=== PATIENT | male | born 1955 | race Caucasian/White ===

== ENCOUNTER 2017-07-25 17:28 | Emergency (ER) | payer OTHER ==
[~2017-07-25] VITALS: Ht 182.9 cm; Wt 65.0 kg
[~2017-07-25 17:28] MED LIST: AMOXICILLIN500 MG OR; DILANTIN100 MG PO; DONEPEZIL10 MG PO; ENSURE; PRINZIDE1 TAB PO; VITA D-1000 PO; VITAMIN D22000 UNIT PO; VITAMIN D31000 UNI1 OR; WELLBUTRIN SR150 M1 PO; WELLBUTRIN150 MG OR; WELLBUTRIN150 MG PO; [UNRECOGNIZED DRUG - CODE]
[2017-07-25] MEDS ORDERED: HALOPERIDOL5 MG PO (18:04)
[2017-07-25] MEDS ORDERED: MUPIROCIN2 % EX (18:05)
[2017-07-25] MEDS ORDERED: PHENYTOIN EX100 M1 PO (18:08)
[2017-07-25] MEDS ORDERED: AMOX/K CLAV875 M1 PO (18:10)
[2017-07-25 19:34] LABS: INFLUENZA A NONE DETECTED (NONE DETECT); INFLUENZA B NONE DETECTED (NONE DETECT)
[2017-07-25 20:12] LABS: HEMATOCRIT 43.6 % (39.0-50.0); HEMOGLOBIN 14.5 g/dl (14.0-18.0); IMMATURE GRANULOCYTES 0.6 % (0.0-1.0); MEAN CELL VOLUME 96.9 fL CALC (80.0-100.0); MEAN CORPUSCULAR HGB 32.2 pG CALC (26.0-32.0); MEAN CORPUSCULAR HGB CONC 33.3 g/L CALC (32.0-36.0); NEUT# 7.51 thou/uL (1.82-7.42); RED BLOOD COUNT 4.5 mill/uL (4.70-6.10)
[2017-07-25 20:20] LABS: ALBUMIN 4.8 g/dL (3.2-5.0); ALKALINE PHOSPHATASE 178 u/l (38-126); ANION GAP 21 (6-22 (CALC)); BILIRUBIN, TOTAL 0.6 mg/dL (0.0-1.4); BUN 24 mg/dL (8-23); BUN/CREATININE RATIO 23 (12-20 (CALC)); CARBON DIOXIDE 33 mmol/l (22-30); CHLORIDE 99 mmol/l (95-108); GFR > 60 ML/MIN (>=60 (CALC)); GFR FOR AFR.AMER. > 60 ML/MIN (>=60 (CALC)); POTASSIUM 4.3 mmol/l (3.5-5.1); SGPT/ALT 125 u/l (11-66); SODIUM 148 mmol/l (137-146)
[2017-07-25 20:25] LABS: INTERNATIONAL NORMALIZED RATIO 0.9 RATIO (0.7-1.3); PROTHROMBIN TIME 10.4 SECONDS (9.0-12.5)
[2017-07-25 20:26] LABS: SGOT/AST 109 u/l (19-48)
[2017-07-25 20:32] LABS: MYOGLOBIN 54 ng/mL (0 - 121)
[2017-07-26 01:02] VITALS: BP 126/76
== END 2017-07-26 01:04 | disposition short-term general hospital (02) | DRG 199 ==
LOC: ED 17:28
PROVIDERS: Emergency Medicine
PROC: 0W9930Z Drainage of Right Pleural Cavity with Drainage Device, Percutaneous Approach (ICD-10-PCS; principal; 2017-07-25)
DX: J93.83 Other pneumothorax (principal); J18.9 Pneumonia, unspecified organism; R56.9 Unspecified convulsions; R05 Cough
CPT/HCPCS: Q9967

== ENCOUNTER 2019-02-01 07:05 | Emergency (ER) | payer SELFPAY ==
[~2019-02-01] VITALS: Ht 182.9 cm; Wt 61.4 kg
[~2019-02-01 07:05] MED LIST changes: +AMOX/K CLAV875 M1 PO; +HALOPERIDOL5 MG PO; +MUPIROCIN2 % EX; +PHENYTOIN EX100 M1 PO
[2019-02-01] MEDS ORDERED: PHENYTOIN EX100 MG PO (07:22)
[2019-02-01] MEDS ORDERED: TRIAMCINOLON0.11 EX (07:23)
[2019-02-01] MEDS ORDERED: OXYIR5 MG PO (07:25)
[2019-02-01] MEDS ORDERED: AMOXICILLIN/CL875 MG PO (08:18)
[2019-02-01 08:37] VITALS: BP 124/71
== END 2019-02-01 08:51 | disposition home or self-care (01) | DRG 605 ==
LOC: ED 07:05
PROC: 0HQ1XZZ Repair Face Skin, External Approach (ICD-10-PCS; principal; 2019-02-01)
DX: S01.81XA Laceration without foreign body of other part of head, initial encounter (principal); S01.21XA Laceration without foreign body of nose, initial encounter; W06.XXXA Fall from bed, initial encounter; Y92.003 Bedroom of unspecified non-institutional (private) residence as the place of occurrence of the external cause

== ENCOUNTER 2019-02-07 08:36 | Emergency (ER) | payer OTHER ==
[~2019-02-07] VITALS: Ht 182.9 cm; Wt 75.0 kg
[~2019-02-07 08:36] MED LIST changes: +AMOXICILLIN/CL875 MG PO; +OXYIR5 MG PO; +PHENYTOIN EX100 MG PO; +TRIAMCINOLON0.11 EX
[2019-02-07 09:40] VITALS: BP 101/65
== END 2019-02-07 09:40 | disposition home or self-care (01) ==
LOC: ED 08:36
DX: S01.80XD Unspecified open wound of other part of head, subsequent encounter (principal); X58.XXXD Exposure to other specified factors, subsequent encounter

== ENCOUNTER 2019-12-06 10:18 | Inpatient (IN) | payer OTHER ==
[~2019-12-06] VITALS: Ht 182.9 cm; Wt 59.0 kg
--- NOTE | 2019-12-06 10:33 | NUR ---
to room 9 via wc in stable condition.
--- NOTE | 2019-12-06 10:45 | NUR ---
PT CHANGED TO GOWN. MONITORS APPLIED. PT ALERT TO PERSON AND PLACE. NORMAL MENTATION PER STAFF AT RESIDENTIAL. PT PRESENTS WITH FEVER AND URINARY FREQUENCY/INCONTENENCE. NO RESPIRATORY OR CARDIAC COMPLAINTS
[2019-12-06 10:59] LABS: HEMATOCRIT 43.6 % (39.0-50.0); HEMOGLOBIN 13.9 g/dl (14.0-18.0); IMMATURE GRANULOCYTES 0.5 % (0.0-5.0); MEAN CELL VOLUME 96.5 fL CALC (80.0-100.0); MEAN CORPUSCULAR HGB 30.8 pG CALC (26.0-32.0); MEAN CORPUSCULAR HGB CONC 31.9 g/dL CAL (32.0-36.0); NEUT# 5.67 thou/uL (1.82-7.42); RED BLOOD COUNT 4.52 mill/uL (4.70-6.10)
[2019-12-06 11:36] LABS: URINE BILIRUBIN - DIPSTICK NEGATIVE (NEGATIVE); URINE BLOOD DIPSTICK MODERATE (NEGATIVE); URINE COLOR YELLOW; URINE GLUCOSE - DIPSTICK NEGATIVE (NEGATIVE); URINE KETONE NEGATIVE (NEGATIVE); URINE LEUK ESTERASE NEGATIVE (NEGATIVE); URINE NITRITE - DIPSTICK NEGATIVE (Negative); URINE PROTEIN - DIPSTICK TRACE mg/dL (NEG-TRACE); URINE SPECIFIC GRAVITY 1.025; URINE UROBILINOGEN - DIPSTICK 0.2 E.U./dL (0.2)
[2019-12-06 11:46] LABS: URINE AMORPH SEDIMENT MODERATE hpf (NONE-FER); URINE RBC 25-50 RBC/hpf (0-5); URINE SQUAMOUS EPITHELIAL CELL FEW EPI/hpf (0-FEW)
[2019-12-06 11:46] LABS: ACT PARTIAL THROMBO TIME 35.7 SECONDS (20.0-32.5); PROTHROMBIN TIME 11.5 SECONDS (9.0-12.5)
[2019-12-06 11:52] LABS: INTERNATIONAL NORMALIZED RATIO 1.2 RATIO (0.7-1.3)
--- NOTE | 2019-12-06 11:52 | NUR ---
PT REPOSTIONED. PLACED ON 2L O2 VIA NC FOR O2 SAT 90. DR MOTT AWARE
--- NOTE | 2019-12-06 11:53 | NUR ---
CONTACT NUMBERS: JOSE (FAMILY) [phone] AND HALFWAY: [facility] [phone]
[2019-12-06 12:16] LABS: ALBUMIN 4.6 g/dL (3.2-5.0); ALKALINE PHOSPHATASE 143 u/l (38-126); AMYLASE 143 u/l (30-110); ANION GAP 12 (6-22 (CALC)); BILIRUBIN, TOTAL 0.3 mg/dL (0.0-1.4); BUN 23 mg/dL (8-23); BUN/CREATININE RATIO 17 (12-20 (CALC)); CARBON DIOXIDE 30 mmol/l (22-30); CHLORIDE 99 mmol/l (95-108); CREATININE 1.3 mg/dL (0.7-1.3); GFR 56 ML/MIN (>=60 (CALC)); GFR FOR AFR.AMER. > 60 ML/MIN (>=60 (CALC)); LIPASE 156 u/l (23-300); POTASSIUM 4.5 mmol/l (3.5-5.1); SODIUM 137 mmol/l (137-146); TOTAL PROTEIN 7.8 g/dL (6.3-8.2)
--- NOTE | 2019-12-06 12:17 | NUR ---
LOW BLOOD PRESSURE NOTED. DR MOTT AWARE
[2019-12-06 12:25] LABS: SGOT/AST 51 u/l (19-48)
[2019-12-06 12:37] LABS: PHENYTOIN (DILANTIN) 14 ug/mL (10 - 20)
--- NOTE | 2019-12-06 13:15 | NUR ---
ATTEMPT MADE TO CALL REPORT TO MEDICAL SURGICAL FLOOR, NO ANSWER. WILL CALL BACK. PT RESTING QUIETLY IN BED, AIRWAY PATENT, RESP EVEN AND NON LABORED, SKIN P/W/D.
--- NOTE | 2019-12-06 13:37 | NUR ---
MED SURG UNABLE TO TAKE REPORT AT THIS TIME
--- NOTE | 2019-12-06 13:51 | NUR ---
REPORT GIVEN TO [facility]
--- NOTE | 2019-12-06 14:05 | NUR ---
PT TAKEN VIA STRETCHER, TELEMETRY, O2 AND IV INFUSING TO MED SURG
--- NOTE | 2019-12-06 15:00 | NUR ---
PT ARRIVES TO ROOM 281 FROM ER ACCOMPANIED BY HUNG BANKS. PT IS DROWSY, BUT AWAKENS EASILY. PT SLOW TO RESPOND PER MENTALLY CHALLENGED. URINAL PROVIDED, PT ENCOURAGED TO STAY IN THE BED FOR HIS SAFETY. TEMP 100.5, BP 92/51.
--- NOTE | 2019-12-06 16:40 | NUR ---
PT HAS REMAINED AT REST IN THE BED WITHOUT CALLING FOR ASSIST WITH ANYTHING. NO DISTRESS NOTED.
[2019-12-06 19:30] VITALS: BP 106/58
--- NOTE | 2019-12-06 19:59 | NUR ---
Received report for this pt. in bed with eyes closed. no s/s of distress noted. tempt rechecked and continues to be febrile. heavy blankets removed. fluids encouraged. no respiratory distress noted. will continue to observe.
[2019-12-07] VITALS (39 sets, daily range): BP systolic 78–158; BP diastolic 40–86
--- NOTE | 2019-12-07 | NUR ---
PATIENT ARRIVES VIA BED ACCOMPANIED BY NURSE AND DEEP SUBMERGENCE VEHICLE CREWMEMBER. PT IS ON 4 L/MIN NC, SATS 97%. PT WEANED TO 3 L/MIN NC AND SATS 92%-94%. PT IS IN NO ACUTE RESPIRATORY DISTRESS. NO COMPLAINTS OF PAIN. USES THE URINAL, IS INCONTINENT. ORIENTED TO NAME, , AND PLACE. FOLLOWS COMMANDS. FEBRILE 10L DEGREES FAHREINHEIT, ONLY LIGHT SHEET PROVIDED. TYLENOL ALREADY GIVEN BEFORE BRINGING HIM OVER. BP 150'S SYSTOLIC. PT IS SHAKY. SR/SINUS TACH 104 BPM ON TELEMETRY. NURSING ASSESSMENT PERFORMED. RAC 20 G IV INTACT, NS NOW INFUSING AT 80 ML/HR. EXPLAINED WHY HE IS ICU NOW AND ANTIBIOTIC PRESCRIBED. CALL LIGHT WITHIN REACH.
[2019-12-07 00:04] LABS: HEMATOCRIT 43.9 % (39.0-50.0); HEMOGLOBIN 13.9 g/dl (14.0-18.0); IMMATURE GRANULOCYTES 0.5 % (0.0-5.0); MEAN CORPUSCULAR HGB CONC 31.7 g/dL CAL (32.0-36.0); NEUT# 7.71 thou/uL (1.82-7.42); RED BLOOD COUNT 4.48 mill/uL (4.70-6.10); RED CELL DISTRI WIDTH 12.4 % (11.5-15.5)
[2019-12-07 00:19] LABS: ALBUMIN 3.8 g/dL (3.2-5.0); ALKALINE PHOSPHATASE 111 u/l (38-126); ANION GAP 12 (6-22 (CALC)); BILIRUBIN, TOTAL 0.3 mg/dL (0.0-1.4); BUN 15 mg/dL (8-23); BUN/CREATININE RATIO 16 (12-20 (CALC)); CARBON DIOXIDE 25 mmol/l (22-30); CHLORIDE 102 mmol/l (95-108); GFR > 60 ML/MIN (>=60 (CALC)); GFR FOR AFR.AMER. > 60 ML/MIN (>=60 (CALC)); POTASSIUM 4.4 mmol/l (3.5-5.1); SGOT/AST 55 u/l (19-48); SODIUM 134 mmol/l (137-146); TOTAL PROTEIN 6.3 g/dL (6.3-8.2)
--- NOTE | 2019-12-07 00:28 | NUR ---
LATE ENTRY: ASSESSED PT AFTER REPORT AND PT IN BED WITH EYES CLOSED. DROWSY BUT AROUSABLE. RESPIRATIONS UNLABORED AND NO COUGH WAS NOTED. MEDICATIONS GIVEN AND TOLERATED WELL. PT ABLE TO ANSWER QUESTIONS WITH YES OR NO RSPONSE. USES URINAL WHEN NEEDED. 2330 ED CALLED AND STATES THAT PT WAS IN V-TACH MORE THAN 30 ROUNDS. STAT EKG DONE AND ABG'S DONE DUE TO O2 SATS DOWN IN THE 70'S. PT WAS PLACED ON REBREATHER AND UP TO 100%. MD WAS NOTIFIED AND NEW ORDER TO SEND TO ICU FOR FURTHER MONITORING PLACE ON BI-PAP AND D STAT LABS. RESPIRATORY IN WITH PT AND REMOVED REBREATHER AND RECHECKED O2 SAT 77%. OXYGEN PLACED BACK UP TO 4LNC AND O2 SAT 85%. PT TRANSFERRED TO ICU WITH OXYGEN THERAPY IN PLACE. STAT LABS COMPLETED. RESPIRATORY STATED PT DOES NOT NEED BI-PAP AT THIS TIME AND MADE AWARE.
--- NOTE | 2019-12-07 00:58 | NUR ---
PT'S O2 TITRATED TO 5 L/MIN NC, O2 SAT IS 91%, PT IS A MOUTH BREATHER. WILL CONTINUE TO MONITOR.
--- NOTE | 2019-12-07 01:16 | NUR ---
CALLED AND SPOKE TO DR DOWD TO NOTIFY OF PATIENT'S CRITICAL LACTIC ACID, 3.0, ALSO GAVE UPDATE ON PATIENT'S CURRENT STATUS. NEW ORDERS RECEIVED.
--- NOTE | 2019-12-07 01:36 | NUR ---
X1 IV BOLUS OF NS INFUSING NOW, TEMP RETAKE, 99.4 EGREES FAHREINHEIT. PT RESTS WITH EYES CLOSED. AWAKENS EASILY WHEN SPOKEN TO. SATS 94% ON 5 L/MIN NC.
[2019-12-07 03:05] LABS: HEMATOCRIT 42.1 % (39.0-50.0); HEMOGLOBIN 13.6 g/dl (14.0-18.0); MEAN CELL VOLUME 97.5 fL CALC (80.0-100.0); MEAN CORPUSCULAR HGB 31.5 pG CALC (26.0-32.0); MEAN CORPUSCULAR HGB CONC 32.3 g/dL CAL (32.0-36.0); RED BLOOD COUNT 4.32 mill/uL (4.70-6.10); RED CELL DISTRI WIDTH 11.9 % (11.5-15.5)
[2019-12-07 03:07] LABS: NEUT# 9.39 thou/uL (1.82-7.42)
[2019-12-07 03:25] LABS: ALBUMIN 3.8 g/dL (3.2-5.0); ALKALINE PHOSPHATASE 116 u/l (38-126); ANION GAP 11 (6-22 (CALC)); BUN 14 mg/dL (8-23); BUN/CREATININE RATIO 15 (12-20 (CALC)); CARBON DIOXIDE 25 mmol/l (22-30); CHLORIDE 104 mmol/l (95-108); CREATININE 0.9 mg/dL (0.7-1.3); GFR > 60 ML/MIN (>=60 (CALC)); GFR FOR AFR.AMER. > 60 ML/MIN (>=60 (CALC)); POTASSIUM 4.3 mmol/l (3.5-5.1); SGOT/AST 62 u/l (19-48); SODIUM 135 mmol/l (137-146); TOTAL PROTEIN 6.4 g/dL (6.3-8.2)
[2019-12-07 03:27] LABS: BILIRUBIN, TOTAL 0.5 mg/dL (0.0-1.4)
--- NOTE | 2019-12-07 04:15 | NUR ---
PARTIAL BED BATHE PROVIDED, PT HAD A MEDIUM LOOSE BM, INCONTINENT. NEW GOWN PROVIDED. TEMP RECHECKED. CALL LIGHT WITHIN REACH.
--- NOTE | 2019-12-07 04:30 | NUR ---
BOLUS OF 500 ML NS GIVEN AFTER 2ND LACTIC ACID 2.[address] ORDERS.
--- NOTE | 2019-12-07 05:00 | NUR ---
PATIENT WAS YELLING OUT FOR TOILET PAPER AND REPORTED HE HAD TO "POOP." PATIENT HAD INCONTINENT BM, I PLACED HIM ON A BED WELLS WELL BECAUSE HE REPORTED HE WAS NOT DONE, PT WOULD NOT FOLLOW DIRECTIONS AND WOULD NOT SIT ON THE BEDPAN. PT HAD AN XLARGE LOOSE BM. PARTIAL BED BATHE PROVIDED. PT NOW LAYS WITH HOB ABOUT 30 DEGREES. HAS NO OTHER COMPLAINTS. CALL LIGHT WITHIN REACH.
--- NOTE | 2019-12-07 07:50 | NUR ---
pt resting in bed with eyes closed; no apparent distress noted; easily aroused; assessment completed at this time; pt alert to person and place; denies pain; no n/v noted; resp even and unlabored; lungs diminished; skin color wnl; o2 per nc at 5L; rack worker cough noted; hr reg; strong pulses; no edema noted; sr on monitor; abd soft with bs present; no bm noted per tag writer; pt admits to voiding without complication; no urine to inspect at this time; no bm noted per tag writer; #20 to lfa saline locked; #20 to rac patent with ivf infusing without complication; no redness or edema noted at site; pt repositions self; plan of care/ am meds explained; call light within reach; will continue to monitor
--- NOTE | 2019-12-07 08:03 | NUR ---
resting in bed on right side; declined breakfast; no apparent distress noted; sr on monitor; iv intact and patent; o2 per nc; call light within reach; will continue to monitor
--- NOTE | 2019-12-07 08:45 | NUR ---
Dr Morin present at bedside to assess pt and discuss plan of care
--- NOTE | 2019-12-07 10:10 | NUR ---
resting in bed with eyes closed; sr on monitor; iv intact and patent; o2 per nc; call light within reach; will continue to monitor
--- NOTE | 2019-12-07 12:00 | NUR ---
pt resting in bed with eyes closed; bp 85/52; D CARISSA Bueno informed of trend regarding hypotension; orders received for fluid bolus; will continue to monitor closely
--- NOTE | 2019-12-07 12:25 | NUR ---
NS bolus infusing at this time; bp 90/55; sr 80 on monitor; will continue to monitor closely;
--- NOTE | 2019-12-07 12:48 | NUR ---
no rehab needs identified at this time
--- NOTE | 2019-12-07 13:30 | NUR ---
[facility] called per securities underwriter; spoke with Fabienne Boss; per Fabienne Boss, Marcela needs to be called for medical decisions/consent; Michelle Connolly with [facility] called per securities underwriter; consent obtained for central line placement;
--- NOTE | 2019-12-07 14:07 | NUR ---
awake sitting on side of bed eating lunch; no apparent distress noted; pt offers no complaints; iv intact and patent; sr on monitor; call light within reach; will continue to monitor
--- NOTE | 2019-12-07 14:17 | NUR ---
iv flushed and patent; no redness or edema noted at site; levophed gtt initiated at 4mcg/min
--- NOTE | 2019-12-07 16:01 | NUR ---
resting in bed with eyes closed; no apparent distress noted; easily aroused; iv intact and patent; levophed gtt infusing at 8mcg/min; no redness or edema noted at site; sr on monitor; call light within reach; will continue to monitor
--- NOTE | 2019-12-07 17:59 | NUR ---
resting in bed with eyes closed; no apparent distress noted; pt offers no complaints; iv intact and patent; levophed gtt infusing at 8mcg/min; no redness or edema noted at site; sr on monitor; o2 per nc; call light within reach
--- NOTE | 2019-12-07 19:30 | NUR ---
PATIENT RESTING IN BED ON ROUNDS. AWAKE, ALERT AND ORIENTED TO PERSON AND PLACE. CALM AND COOPERATIVE. FOLLOWS DIRECTIONS. DENIES ANY PAIN OR DISCOMFORTS. RESP NON-LABORED. O2 AT 5 L NC. O2 SAT 98% LUNGS CLEAR, SLT DIMINISHED T/O. SALINE LOCK INTACT IN RAC. IV IN LFA WITH NS INFUSING AT 100 ML/HR AND LEVOPHED AT 8 MCG/MIN, SITE BENIGN. VOIDS IN URINAL CLEAR YELLOW URINE. STAFF RN SHOWS SR. EXPLAINED PLAN OF CARE. PATIENT ASKIG WHEN HE IS GOING TO GO HOME. SUPPORT AND REASSURANCE PROVIDED TO PATIENT REGARDING HOSPITAL STAY. NO NEEDS IDENTIFIED AT THIS TIME. REINFORCED USE OF CALL ENGLISH. PATIENT VERALIZES UNDERSTANDING.
--- NOTE | 2019-12-07 20:30 | NUR ---
RIJTLC PLACED BY DR ESCOBAR. PORTABLE CXR DONE TO CONFIRM PLACED. DR ESCOBAR GAVE VERBAL OK TO USE LINE. NS AND LEVOPHED NOW INFUSING PER TLC. LFA SITE SALINE LOCKED.
--- NOTE | 2019-12-07 22:00 | NUR ---
ASSISTED UP TO BSC, VOIDED NO BM. VSS. SR ON MONITOR.
[2019-12-08] VITALS (33 sets, daily range): BP systolic 94–140; BP diastolic 55–84
--- NOTE | 2019-12-08 | NUR ---
NO CHANGES TO REPORT. RESTING WITHOUT COMPLAINTS. VSS. SR ON MONITOR.
--- NOTE | 2019-12-08 01:00 | NUR ---
UP TO BSC WITH ASSIST, VOIDED, NO BM. BP 140/73. LEVOPHED GTT DECREASED TO 7 MCG/MIN.
--- NOTE | 2019-12-08 02:00 | NUR ---
RESTING WITH EYES CLOSED. RESP NON-LABORED. VSS. SR ON MONITOR.
--- NOTE | 2019-12-08 04:15 | NUR ---
ASSISTED UP TO BSC, VOIDS WITHOUT DIFFICULTY. BLOOD DRAWN FOR AM LABS FROM [facility].
[2019-12-08 05:24] LABS: HEMOGLOBIN 13.7 g/dl (14.0-18.0); MEAN CORPUSCULAR HGB 30.6 pG CALC (26.0-32.0); MEAN CORPUSCULAR HGB CONC 32.6 g/dL CAL (32.0-36.0); RED BLOOD COUNT 4.47 mill/uL (4.70-6.10); RED CELL DISTRI WIDTH 12.1 % (11.5-15.5)
[2019-12-08 05:52] LABS: ANION GAP 10 (6-22 (CALC)); BUN 10 mg/dL (8-23); BUN/CREATININE RATIO 12 (12-20 (CALC)); CARBON DIOXIDE 26 mmol/l (22-30); CHLORIDE 104 mmol/l (95-108); CREATININE 0.9 mg/dL (0.7-1.3); GFR > 60 ML/MIN (>=60 (CALC)); GFR FOR AFR.AMER. > 60 ML/MIN (>=60 (CALC)); SODIUM 135 mmol/l (137-146)
--- NOTE | 2019-12-08 05:57 | NUR ---
VSS. RESP NON-LABORED. SR ON MONITOR. LEVOPHED GTT CONTINUES AT 7 MCG/MIN AND NS AT 100 ML/HR TO RITLC. SALINE LOCKS INTACT IN RAC AND LFA.
--- NOTE | 2019-12-08 06:45 | NUR ---
RECIEVED REPORT FROM DARREN NORRIS. ASSUMED PT CARE.
--- NOTE | 2019-12-08 07:30 | NUR ---
PT ALERT TO SELF, ABLE TO MAKE NEEDS KNOWN. ASSESSMENT COMPLETED. RESPIRATIONS EVEN/UNLABORED. 02@2LPM/NC. NO DISTRESS NOTED AT THIS TIME. CALL LIGHT IN REACH.
--- NOTE | 2019-12-08 09:30 | NUR ---
PT VOIDED IN BSD URINAL
--- NOTE | 2019-12-08 11:30 | NUR ---
PT REFUSED LUNCH TRAY, OFFERED TWICE.
--- NOTE | 2019-12-08 12:41 | NUR ---
PT RESTING IN BED WITH EYES CLOSED. CALL LIGHT IN REACH. NO DISTRESS NOTED AT THIS TIME.
--- NOTE | 2019-12-08 14:47 | NUR ---
COMPLETE BED BATH. LINEN CHANGE AND MOUTH CARE PROVIDED. PT TOLERATED WELL.
--- NOTE | 2019-12-08 17:00 | NUR ---
PT RESTING IN BED, RESPIRATIONS EVN/UNLABORED. LEVOPHED GTT CONTINUES. CALL LIGHT IN REACH. WILL MONITOR.
--- NOTE | 2019-12-08 17:56 | NUR ---
PT REFUSED DINNER, EDUCATION ON NUTRITION GIVEN, PT ENCOURAGED TO TAKE ENSURE. PT DECLINED. WILL MONITOR.
--- NOTE | 2019-12-08 20:15 | NUR ---
RESTING IN BED WITH EYES CLOSED. AWAKENS TO NAME. DENIES ANY PAIN OR DISCOMFORTS. VSS. RESP NON-LABORED AT REST. O2 ON AT 2 L NC. BREATH SOUNDS DIMINISHED THROUGHOUT LUNG COMBS. RIJTLC IN PLACE WITH NS INFUSING AT 100 ML/HR AND LEVOPHED GTT AT 2 MCG/MIN. SALINE LOCK IN PLACE IN RAC AND LFA, BOTH SITES BENIGN. SOFTWARE QA SYSTEM SPECIALIST SHOWS SR. EXPLAINED PLAN OF CARE. DENIES NEEDS AT THIS TIME. CALL ENGLISH IN REACH. VOIDS SLT CLOUDY YELLOW URINE IN URINAL.
--- NOTE | 2019-12-08 21:00 | NUR ---
TOOK HS MEDS WITHOUT DIFFICULTY. OFFERED HS SNACK PATIENT REFUSES.
--- NOTE | 2019-12-08 22:00 | NUR ---
VSS. SR ON MONITOR. LEVOPHED GTT CONTINUES AT 2 MCG/MIN.
[2019-12-09] VITALS (26 sets, daily range): BP systolic 105–164; BP diastolic 63–90
--- NOTE | 2019-12-09 00:05 | NUR ---
ASLEEP ON ROUNDS. RESP NON-LABORED. VSS. O2 SAT 98% CONTINUES USING O2 AT 2 L NC. MONITOR SHOWS SR.
--- NOTE | 2019-12-09 01:51 | NUR ---
NO CHANGES TO REPORT. RESTING CALMLY AND QUIETLY. VSS. SR ON MONITOR.
--- NOTE | 2019-12-09 04:05 | NUR ---
CONTINUES ON LEVOPHED GTT AT 2 MCG/MIN. BP STABLE. RESP EVEN AND UNLABORED. SR ON MONITOR.
--- NOTE | 2019-12-09 06:00 | NUR ---
LEVOPHED GTT CONTINUES AT 2 MCG/MIN, NS AT 50 ML/HR. SR ON MONITOR. PATIENT HAS SLEPT WELL DURING THE NIGHT.
--- NOTE | 2019-12-09 07:10 | NUR ---
pt resting in bed with eyes closed; no apparent distress noted; easily aroused; pt offers no complaints; assessment completed at this time; pt alert to person and hospital; denies pain; no n/v noted; resp even and unlabored; lungs coarse/diminished; skin color wnl; o2 per nc; inpatient nursing aide cough noted; hr reg; strong pulses; no edema noted; sr on monitor; abd soft with bs present; no bm noted per personal lines underwriter; pt voiding yellow urine without complication; urinal at bedside; #20 intact to lfa and rac; TLC flushed and patent to RIJ: ivf infusing as per orders/ levophed gtt at 2mcg/min; no redness or edema noted at site; plan of care/ am meds explained; call light within reach; will continue to monitor
--- NOTE | 2019-12-09 07:59 | NUR ---
Dr Morin present at bedside to assess pt and discuss plan of care
--- NOTE | 2019-12-09 10:11 | NUR ---
awake in bed; no apparent distress noted; iv intact and patent; levophed gtt at 2mcg/min; o2 per nc; urinal at bedside; sr on monitor; will continue to monitor
--- NOTE | 2019-12-09 10:49 | NUR ---
ticket writer called [facility]; informed of covid results; will continue to monitor
--- NOTE | 2019-12-09 11:26 | NUR ---
pt declining lunch; staff inquires why he is not eating; pt states nothing taste right; pt covid +; loss of taste noted
--- NOTE | 2019-12-09 11:45 | NUR ---
pt awake in bed; no apaprent distress noted; pt asked this financial underwriter "is it possible to stay one more day" pt states he is in the hospital; plan of care explained; pt reassured; cont to decline lunch; levophed gtt placed on hold/attempt to wean; will continue to monitor
--- NOTE | 2019-12-09 12:15 | NUR ---
resting in bed with eyes closed; no apparent distress noted; iv intact and patent; levophed remains on hold at current; o2 per nc; pt self repositions; call light within reach; will continue to monitor
--- NOTE | 2019-12-09 13:54 | NUR ---
asleep; easily aroused; offers no complaints; levophed gtt weaned; iv intact and patent; urinary incont noted; will continue to monitor
--- NOTE | 2019-12-09 16:20 | NUR ---
resting in bed with eyes closed; no apparent distress noted; o2 per nc; iv intact and patent; levophed weaned; will continue to monitor
--- NOTE | 2019-12-09 18:32 | NUR ---
awake in bed; no apparent distress noted; iv intact; no redness or edema noted at site; sr on monitor; o2 per nc; pt refused dinner/ po fluids; call light within reach
--- NOTE | 2019-12-09 20:47 | NUR ---
PATIENT IS AWAKE, ORIENTED TO PERSON, PLACE, AND AGE. PT ABLE TO FOLOW COMMANDS. PATIENT DENIES PAIN OR NO OTHER COMPLAINTS. PT ON 2 L/MIN NC, NO RESPIRATORY DISTRESS NOTED, O2 SATS GREATER THAN 95%. AFEBRILE, BP WNL. RIJ 3 LUMEN, INTACT, FLUSHES AND RETURNS BLOOD PROPERLY. NS INFUSING PROPERLY. PT ABLE TO SWALLOW HIS BEDTIME MEDS WITHOUT DIFFICULTY. SR ON TELEMETRY. USES URINAL AND DOES HAVE INCONTINENCE. NURSING ASSESSMENT PERFORMED. SELF REPOSITIONS. CALL LIGHT WITHIN REACH.
--- NOTE | 2019-12-09 22:15 | NUR ---
O2 TITRATED TO 3 L/MIN NC, PT'S O2 DROPS TO 92%. RESTS WITH EYES CLOSED, NO RESPIRATORY DISTRESS NOTED.
[2019-12-10] VITALS (17 sets, daily range): BP systolic 99–142; BP diastolic 62–113
--- NOTE | 2019-12-10 00:17 | NUR ---
ANTIBIOTIC INFUSING NOW. PT RESTS WITH EYES CLOSED. AWAKENS EASILY WHEN SPOKEN TO. NO ACUTE DISTRESS SHOWN. CALL LIGHT WITHIN REACH.
--- NOTE | 2019-12-10 04:17 | NUR ---
PT UP TO THE BEDSIDE COMMODE WITH MINIMAL ASSIST. BED PADS CHANGED, NEW GOWN PROVIDED. BUTTOCK WASHED AND DRIED. PT NOW LAYS IN BED WITH NO ACUTE DISTRESS. CALL LIGHT WITHIN REACH.
--- NOTE | 2019-12-10 05:39 | NUR ---
LABS DRAWN FROM RIJ, FLUSHES AND RETURNS BLOOD PROPERLY, INTACT. PT RESTS WITH EYES CLOSED. CALL LIGHT WITHIN REACH.
[2019-12-10 05:51] LABS: HEMATOCRIT 37.8 % (39.0-50.0); HEMOGLOBIN 12.1 g/dl (14.0-18.0); IMMATURE GRANULOCYTES 0.5 % (0.0-5.0); MEAN CELL VOLUME 95.5 fL CALC (80.0-100.0); MEAN CORPUSCULAR HGB 30.6 pG CALC (26.0-32.0); NEUT# 2.99 thou/uL (1.82-7.42); RED BLOOD COUNT 3.96 mill/uL (4.70-6.10); RED CELL DISTRI WIDTH 12.1 % (11.5-15.5)
[2019-12-10 06:12] LABS: ALKALINE PHOSPHATASE 92 u/l (38-126); ANION GAP 7 (6-22 (CALC)); BILIRUBIN, TOTAL 0.6 mg/dL (0.0-1.4); BUN 13 mg/dL (8-23); BUN/CREATININE RATIO 15 (12-20 (CALC)); CARBON DIOXIDE 28 mmol/l (22-30); CHLORIDE 106 mmol/l (95-108); CREATININE 0.9 mg/dL (0.7-1.3); GFR > 60 ML/MIN (>=60 (CALC)); GFR FOR AFR.AMER. > 60 ML/MIN (>=60 (CALC)); POTASSIUM 3.5 mmol/l (3.5-5.1); SODIUM 137 mmol/l (137-146); TOTAL PROTEIN 5.2 g/dL (6.3-8.2)
[2019-12-10 06:33] LABS: ALBUMIN 2.8 g/dL (3.2-5.0); C-REACTIVE PROTEIN 19.9 mg/dL (0-0.9); SGOT/AST 117 u/l (19-48)
--- NOTE | 2019-12-10 07:25 | NUR ---
pt resting in bed with eyes closed; no apparent distress noted; easily aroused; pt offers no complaints; alert to person and place; denies pain; no n/v noted; resp even and unlabored; lungs clear/ diminished bases; skin color wnl; o2 per nc; firestopper technician cough noted; hr reg; strong pulses; no edema noted; sr on monitor; abd soft with bs present; no bm noted per residential mortgage underwriter; pt voiding without complication; urinal at bedside; TLC patent to RIJ; no redness or edema noted at site; ivf infusing without complication; plan of care/ am meds explained; call light within reach; will continue to monitor
--- NOTE | 2019-12-10 08:12 | NUR ---
pt awake in bed; no apparent distress noted; iv intact and patent; sr on monitor; pt refusing meal; call light within reach; will continue to monitor
--- NOTE | 2019-12-10 08:37 | NUR ---
Dr Morin present at bedside to assess pt and discuss plan of care
--- NOTE | 2019-12-10 10:08 | NUR ---
resting in bed with eyes closed; no apparent distress noted; o2 per nc; iv intact; fluids infusing without complication; no redness or edema noted at site; call light within reach; will continue to monitor
--- NOTE | 2019-12-10 10:25 | NUR ---
Eryn from [facility] called; passcode verified; information/update provided; per family, pt will eat pureed or mech soft diet (due to teeth); pt takes Ensure TID due to weight loss; pt likes mashed potatoes and peanut butter and jelly; will continue to monitor
--- NOTE | 2019-12-10 12:05 | NUR ---
awake in bed; no apparent distress noted; pt offers no complaints; iv intact and patent; no redness or edema noted at site; sr on monitor; o2 per nc; lunch provided; pt provided with soup, mashed potatoes and peanut butter and jelly sandwich; pt admits to wanting p&j sandwich but declined with staff attempting to feed; ensure at bedside; will continue to monitor
--- NOTE | 2019-12-10 14:00 | NUR ---
resting in bed with eyes closed; sr on monitor; iv intact and patent; call light within reach; will continue to monitor
--- NOTE | 2019-12-10 16:10 | NUR ---
pt resting in bed with eyes closed; no apparent distress noted; iv intact and patent; no urinary incont noted at this time; sr on monitor; call light within reach; will continue to monitor
--- NOTE | 2019-12-10 17:26 | NUR ---
up to bsc; dk brown liquid stool noted; pericare per staff; o2 per nc; exertional sob noted; iv intact and patent; will continue to monitor
--- NOTE | 2019-12-10 18:09 | NUR ---
resting in bed with eyes closed; no apparent distress noted; resp even and unlabored; iv intact and patent; sr on monitor; call light within reach
--- NOTE | 2019-12-10 18:29 | NUR ---
AWAKE IN BED; CONTINUES TO DECLINE DINNER; ENSURE PROVIDED
--- NOTE | 2019-12-10 19:15 | NUR ---
PATIENT ON BSC, DOES HAVE UNSTEADY GAIT. DIGNA AREA WAS WASHED UP AND DRIED. PT DOES BECOME SOB WITH EXERTION. PT BECOMES COLD AND STARTS TO SHAKE, HEART MONITOR UNABL TO READ CORRECTLY WHEN PT SHAKES. PT HAD LIQUID BM. PT ORIENTED TO NAME, , PLACE, AGE. PT FOLOWS DIRECTIONS. PT DID DRINK ENSURE PROVIDE DURING DAYSHIFT. RIJ TRIPLE LUMEN INTACT, FLUSHES PROPERLY, D5NS AT 50 ML/HR INFUSING. AFEBRILE, BP WNL. O2 AT 3 L/MIN, O2 READS 80'S WHEN FINGERS ARE COLD. URINL AT BEDSIDE. PT WLF REPSOITONS. SITE ACQUISITION MANAGER MOIST COUGH. NURSING ASSESSMENT PERFORMED. CALL LIGHT WITHIN REACH.
--- NOTE | 2019-12-10 21:24 | NUR ---
PT ASSISTED TO BSC, DOES HAVE UNSTEADY GAIT. WAS CLEANED UP. NOW LAYS BACK IN BED, WITH SOB WITH EXERTION. CALL LIGHT WITHIN REACH.
--- NOTE | 2019-12-10 22:10 | NUR ---
PATIENTABLE TO SWALLOW HIS BEDTIME MEDS WITHOUT DIFFICULTY. WARM BLANKET PROVIDED PER REQUEST. NO OTHER NEEDS AT THIS TIME. CALL LIGHT WITHIN REACH.
--- NOTE | 2019-12-10 23:28 | NUR ---
PT RESTS WITH EYES CLOSED. NO ACUTE DISTRESS SHOWN. VS WNL.
[2019-12-11] VITALS (12 sets, daily range): BP systolic 91–111; BP diastolic 57–83
--- NOTE | 2019-12-11 00:23 | NUR ---
MIDNIGHT ANTIBIOTIC INFUSING NOW, X1 ORDER OF IV DECADRON GIEVN WELL. PT AWAKENS EASILY WITH VERBAL STIMULI. NO ACUTE DISTRESS SHOWN. NO COMPLAINTS OR NEEDS AT THIS TIME.
--- NOTE | 2019-12-11 00:58 | NUR ---
PT ASSISTED TO BSC. HAD LIQUID BM. PT SAFELY TRANSFERRED BACK TO BED, NOW LAYS ON HIS RIGHT SIDE. CALL LIGHT WITHIN REACH.
--- NOTE | 2019-12-11 02:24 | NUR ---
PATIENT RESTS WITH EYES CLOSED. NO ACUTE DISTRESS SHOWN. CALL LIGHT WITHIN REACH.
--- NOTE | 2019-12-11 04:57 | NUR ---
PT MANAGER FINANCE LIGHT, ASSISTED TO BSC, BUTTOCKS WASHED UP. PT ABLE TO SELF REPSOITON WITH VERBAL CUEING. AFEBRILE. NO OTHER NEEDS AT THIS TIME. CALL LIGHT WITHIN REACH.
--- NOTE | 2019-12-11 08:00 | NUR ---
PT SEEN AWAKE, ORIENTED X 2. LUNGS SLIGHTLY COARSE THROUGHOUT, 3 LPM. NO SHORTNESS OF BREATH NOTED. PT MENTALLY CHALLENGED BUT APPROPRIATE WHEN HE RESPONDS.
--- NOTE | 2019-12-11 12:03 | NUR ---
PT STOOD UP AT BEDSIDE TO VOID, ALSO HAD BM IN BED. PT CLEANED UP, ASSISTED BACK INTO BED. MARY FROM [facility] HAS CALLED FOR AN UPDATE. PT DID EAT MINIMAL BREAKFAST, ENCOURAGED NOW TO EAT A GOOD LUNCH.
--- NOTE | 2019-12-11 16:17 | NUR ---
PT HAS REMAINED AT REST IN THE BED WITHOUT SIGNIFICANT CHANGE IN STATUS.
--- NOTE | 2019-12-11 18:14 | NUR ---
PT IN BED WITH EYES CLOSED, NO DISTRESS, NO ISSUES. PT WITH SUPPER STILL ON BEDSIDE TABLE FOR WHEN HE IS READY.
--- NOTE | 2019-12-11 19:45 | NUR ---
PATIENT RANG CALL LIGHT FOR ASSISTANCE TO USE BSC. UP TO BSC WITH MINIMAL ASSIST-VOIDED AND HAD SMALL LIQUID STOOL. PATIENT IS CALM AND COOPERATIVE. ALERT AND ORIENTED. RESP NON-LABORED. O2 ON AT 2 L NC. O2 SAT 98% BREATH SOUNDS COARSE IN UPPER LOBES AND DIMINISHED IN BILATERAL BASES. MOIST, NON-PRODUCTIVE COUGH PRESENT. RIJTLC INTACT WITH D5NS INFUSING AT 50 ML/HR. BEACH ATTENDANT SHOWS SR. DISCUSSED PLAN OF CARE. NO NEEDS IDENTIFIED AT THIS TIME.
--- NOTE | 2019-12-11 22:00 | NUR ---
RESTING IN BED. VSS. SR ON MONITOR.
[2019-12-12] VITALS (12 sets, daily range): BP systolic 111–138; BP diastolic 70–84
--- NOTE | 2019-12-12 | NUR ---
UP TO BSC AGAIN HAD SMALL LIQUID STOOL AND VOIDED.
--- NOTE | 2019-12-12 02:00 | NUR ---
RESTING IN BED WITH EEYS CLOSED. RESP NON-LABORED. VSS.
--- NOTE | 2019-12-12 03:00 | NUR ---
PATIENT GOT HIMSELF UP TO SIDE OF BED AND HAD LARGE LOOSE STOOL AND VOIDED ALL OVER THE FLOOR. ASSISTED PATIENT TO BSC. PARTIAL LINEN CHANGE AND PARTIAL BATH GIVEN. ASSISTED BACK TO BED.
--- NOTE | 2019-12-12 04:10 | NUR ---
RESTING QUIETLY IN BED AT THIS TIME. VSS. REMAINS IN SR ON MOITOR. IV INFUSING WITHOUT INCIDENT PER RIJTLC.
--- NOTE | 2019-12-12 04:45 | NUR ---
BLOOD DRAWN FROM [facility] FOR AM LABS ORDERED.
[2019-12-12 05:18] LABS: HEMATOCRIT 36.6 % (39.0-50.0); HEMOGLOBIN 11.4 g/dl (14.0-18.0); IMMATURE GRANULOCYTES 0.5 % (0.0-5.0); MEAN CELL VOLUME 97.3 fL CALC (80.0-100.0); MEAN CORPUSCULAR HGB 30.3 pG CALC (26.0-32.0); MEAN CORPUSCULAR HGB CONC 31.1 g/dL CAL (32.0-36.0); NEUT# 2.98 thou/uL (1.82-7.42); RED BLOOD COUNT 3.76 mill/uL (4.70-6.10); RED CELL DISTRI WIDTH 12.2 % (11.5-15.5)
[2019-12-12 05:39] LABS: ALBUMIN 2.8 g/dL (3.2-5.0); ALKALINE PHOSPHATASE 89 u/l (38-126); ANION GAP 3 (6-22 (CALC)); BILIRUBIN, TOTAL 0.4 mg/dL (0.0-1.4); BUN 15 mg/dL (8-23); BUN/CREATININE RATIO 17 (12-20 (CALC)); C-REACTIVE PROTEIN 7.4 mg/dL (0-0.9); CHLORIDE 107 mmol/l (95-108); CREATININE 0.9 mg/dL (0.7-1.3); GFR > 60 ML/MIN (>=60 (CALC)); GFR FOR AFR.AMER. > 60 ML/MIN (>=60 (CALC)); POTASSIUM 3.1 mmol/l (3.5-5.1); SGOT/AST 63 u/l (19-48); SODIUM 141 mmol/l (137-146); TOTAL PROTEIN 5.3 g/dL (6.3-8.2)
[2019-12-12 05:45] LABS: CARBON DIOXIDE 34 mmol/l (22-30)
--- NOTE | 2019-12-12 06:10 | NUR ---
SLEPT INTERMITTENTLY. RESP NON-LABORED. MAINTAINING O2 SAT >93% DURING THE NIGHT. SR ON MONITOR. RIJTLC INTACT, DSG CDI, D5NS CONTINUES TO INFUSE AT 50 ML/HR, UNUSED PORTS HAVE A GOOD BLOOD RETURN, FLUSHED AND PATENT.
--- NOTE | 2019-12-12 07:05 | NUR ---
pt resting in bed with eyes closed; no apparent distress noted; easily aroused; assessment completed at this time; when asked name and date of pt shakes head no; nods no for pain; no n/v noted per underwriter solicitation director; resp even and unlabored; exertional sob noted; lungs clear/ diminished bases; skin color wnl; pt noted with o2 off; o2 sat 95% on ra; moist psych arnp cough noted; hr reg; strong pulses; no edema noted; sr on monitor; abd soft with bs present; no bm noted/ no urine noted at this time; urinal at bedside; TLC patent to RIJ with ivf infusing without complication; no redness or edema noted at site; redness noted to coccyx; pt repositoned to left side at this time; repositioning explained; pt yells for a blanket; provided; will continue to monitor
--- NOTE | 2019-12-12 08:10 | NUR ---
contract technical writer present at bedside; pt has self repositioned to supine; sr on monitor; pt refusing breakfast; contract technical writer able to encourage pt to drink ensure; am meds administered; iv intact and patent; urinal at bedside; will continue to monitor
--- NOTE | 2019-12-12 08:53 | NUR ---
Dr Morin present at bedside to assess pt and discuss plan of care
--- NOTE | 2019-12-12 10:01 | NUR ---
resting in bed with eyes closed; no apparent distress noted; resp even and unlabored; iv intact and patent; sr on monitor; face appears flushed; afebrile; o2 per nc; bed alarm set for pt safety; call light within reach; will continue to monitor
--- NOTE | 2019-12-12 11:57 | NUR ---
awake information systems security developer light; assist to bsc; liquid dk brown stool; pericare per staff; iv intact and patent; o2 per nc; st on monitor; refusing lunch/ peanut butter sandwich; pt will drink ensure for staff; bed alarm set for pt safety; call light within reach; will continue to monitor
--- NOTE | 2019-12-12 13:50 | NUR ---
awake in bed; sales consultant light; assist to bsc for liq kei hilliard bm; john per this commercial loan underwriter; sr/st on monitor; o2 per nc; iv intact and patent; pt offers no complaints; additional ensure provided; call light within reach; will continue to monitor
--- NOTE | 2019-12-12 15:16 | NUR ---
up to bsc for liq stool
--- NOTE | 2019-12-12 16:05 | NUR ---
awake interpersonal communications professor light; assisted to bsc for liq stool; pericare per blog writer; o2 per nc; iv intact and patent; sob on exertion noted; sr on monitor; call light within reach; will continue to monitor
--- NOTE | 2019-12-12 18:11 | NUR ---
awake in bed; decling dinner; tolerating Ensure well; up to bsc for stool; exertional sob noted; desats to mid 80s with exertion; o2 titrated to 3L NC; st with exertion; back to bed; call light within reach
--- NOTE | 2019-12-12 19:45 | NUR ---
PATIENT RESTING IN BED. ASSISTED UP TO BSC. PATIENT NOTED TO HAVE INCREASING GENERALIZED WEAKNESS. VOIDED AND HAD MODERATE LIQUID DK BROWN STOOL. ASSSITED BACK TO BED. RESP ARE LABORED WITH EXERTION, DESAT TO 88% QUICKLY BACK UP INTO THE 90'S ONCE BACK TO BED. O2 ON AT 3 L NC. BREATH SOUNDS DIMINISHED THROUGOUT LUNG COMBS. MOIST NON-PRODUCTIVE COUGH PRESENT. REMINDED TO TURN SIDE TO SIDE AND STAY OFF BACK MUCH POSSIBLE D/T REDNESS OF COCCYX. RIJTLC INTACT, DSG CDI, D5NS INFUSING AT 50 ML/HR WITH TWO PORTS SALINE LOCKED. TRAFFIC EXPERT SHOWS SR. EXPLAINED PLAN OF CARE AND MEDICATION SCHEDULE. PATIENT GIVEN CHOCOLATE ENSURE PER HIS REQUEST. CALL ENGLISH IN REACH.
--- NOTE | 2019-12-12 22:00 | NUR ---
PATIENT HAS BEEN UP TO BSC X3 THIS SHIFT FOR SMALL TO MODERATE LIQUID STOOLS AND VOID. PATIENT DRANK BOTTLE OF ENSURE. VSS.
[2019-12-13] VITALS (13 sets, daily range): BP systolic 103–152; BP diastolic 61–96
--- NOTE | 2019-12-13 00:05 | NUR ---
RESTING QUIETLY AT THIS TIME. VSS. SR ON MONITOR.
--- NOTE | 2019-12-13 02:00 | NUR ---
RESTING IN BED WITH EYES CLOSED. IN NO APPARENT DISTRESS,
--- NOTE | 2019-12-13 04:00 | NUR ---
SLEEPS FOR SHORT INTERVALS. VSS. RESP NON-LABORED. SR ON MONITOR.
--- NOTE | 2019-12-13 06:00 | NUR ---
HAD NUMERSOUS LIQUID STOOLS DURING THE NIGHT. VOIDED WITH EACH BM. SR ON MONITOR.
--- NOTE | 2019-12-13 07:00 | NUR ---
pt awake in bed air traffic control operator light; requesting additional blankets; no apparent distress noted; assessment completed at this time; pt alert to person and place; denies pain; no n/v noted; resp even and unlabored; exertional sob noted; lungs coarse; skin color wnl; face appears flushed; o2 per nc at 3L; STOCK BROKER moist cough noted; hr reg; strong pulses; no edema noted; sr on monitor; abd soft with bs present; pt with multiple liq stools throughout the night; pt voiding without complication/ voiding with stools; bsc; TLC patent to RIJ with ivf infusing without complication; no redness or edema noted at site; redness noted to coccyx/ buttocks; repositioned to left side however, pt repositioned self to supine prior to typewriter assembler leaving room; plan of care/ meds explained; call light within reach; will continue to monitor
--- NOTE | 2019-12-13 08:00 | NUR ---
awake in bed; declined breakfast; tolerated Ensure well; iv intact and patent; sr on monitor; o2 per nc; offers no complaints; call light within reach; will continue to monitor
--- NOTE | 2019-12-13 08:35 | NUR ---
bed alarm sounding; pt out of bed per self to bsc; loose stool noted; sample obtained; pericare per staff; will continue to monitor
--- NOTE | 2019-12-13 09:05 | NUR ---
bed alarm sounding; pt out of bed per self; safety precautions explained; Dr Morin at bedside to assess pt and discuss plan of care; st on monitor; o2 per nc; iv intact and patent; gown changed; will continue to monitor
--- NOTE | 2019-12-13 10:00 | NUR ---
awake; bed alarming; up up per self to bsc; again, fall precautions and safety precautions explained; pericare per fiction and nonfiction writer prose; no stool noted; sr on monitor; iv intact and patent; o2 per nc; call light within reach; will continue to monitor
--- NOTE | 2019-12-13 12:00 | NUR ---
awake sitting on side of bed eating lunch; no distress noted; assist to bsc; pt offers no complaints; iv intact and patent; sr on monitor; o2 per nc; call light within reach; will continue to monitor
--- NOTE | 2019-12-13 14:15 | NUR ---
resting in bed with eyes closed; no apparent distress noted; sr on monitor; o2 per nc; will continue to monitor
--- NOTE | 2019-12-13 15:00 | NUR ---
up to bsc; pt refusing bath; complete linen change; partial bath per magnetic tape typewriter operator; will continue to monitor
--- NOTE | 2019-12-13 16:05 | NUR ---
pt resting in bed with eyes closed; no apparent distress noted; resp even and unlabored; iv intact and patent; sr on monitor; o2 per nc; call light within reach; will continue to monitor
--- NOTE | 2019-12-13 18:15 | NUR ---
pt resting in bed with eyes closed; no apparent distress noted; resp even and unlabored; sr on monitor; iv intact and patent; no redness or edema noted at site; call light within reach
--- NOTE | 2019-12-13 19:35 | NUR ---
UP TO BSC VOIDED WITH MODERATE LIQUID DARK BROWN STOOL. ASSISTED BACK TO BED. RESP SLT LABORED WITH EXERTION. O2 ON AT 3 L NC. BREATH SOUNDS COARSE THROUGOUT. MOIST, NON-PRODUCTIVE COUGH PRESENT. RIJTLC INTACT, DSG CDI, D5NS INFUSING AT 50 ML/HR. PATIENT NOTED TO HAVE REDNESS OF COCCYX, INSTRUCTED ON NEED FOR POSITION CHANGES. SCIENCE AND OPERATIONS OFFICER SHOWS SR. EXPLAINED PLAN OF CARE. REQUESTS AN ENSURE BEFORE BED TONIGHT. CALL ENGLISH IN REACH.
--- NOTE | 2019-12-13 22:05 | NUR ---
PATIENT UP TO BSC HOURLY SINCE 1900 VOIDS AND HAVING SMALL TO MODERATE LIQUID STOOLS. VSS. SR ON MONITOR.
[2019-12-14] VITALS (9 sets, daily range): BP systolic 121–155; BP diastolic 73–91
--- NOTE | 2019-12-14 | NUR ---
RESTING IN BED WITH EYES CLOSED. RESP NON-LABORED AT RET. VSS. SR ON MONITOR.
--- NOTE | 2019-12-14 02:00 | NUR ---
ASLEEP. NO CHANGES TO REPORT. IN NO APPARENT DISTRESS. VSS. SR ON MONITOR. RESP NON-LABORED.
--- NOTE | 2019-12-14 04:00 | NUR ---
PATIENT AWAKE, UP TO BSC TO VOID. BLOOD FROM TLC FOR AM LABS ORDERED. TLC FLUSHED PRE AND POST LAB DRAW PER PROTOCOL. VSS. SR.
[2019-12-14 05:15] LABS: HEMATOCRIT 41.3 % (39.0-50.0); HEMOGLOBIN 12.8 g/dl (14.0-18.0); IMMATURE GRANULOCYTES 0.7 % (0.0-5.0); MEAN CELL VOLUME 98.3 fL CALC (80.0-100.0); MEAN CORPUSCULAR HGB 30.5 pG CALC (26.0-32.0); NEUT# 3.08 thou/uL (1.82-7.42); RED BLOOD COUNT 4.2 mill/uL (4.70-6.10)
[2019-12-14 05:28] LABS: ALBUMIN 3.4 g/dL (3.2-5.0); ALKALINE PHOSPHATASE 109 u/l (38-126); ANION GAP 8 (6-22 (CALC)); BILIRUBIN, TOTAL 0.4 mg/dL (0.0-1.4); BUN 17 mg/dL (8-23); BUN/CREATININE RATIO 23 (12-20 (CALC)); C-REACTIVE PROTEIN 6.3 mg/dL (0-0.9); CARBON DIOXIDE 33 mmol/l (22-30); CHLORIDE 104 mmol/l (95-108); CREATININE 0.8 mg/dL (0.7-1.3); GFR > 60 ML/MIN (>=60 (CALC)); GFR FOR AFR.AMER. > 60 ML/MIN (>=60 (CALC)); POTASSIUM 3.9 mmol/l (3.5-5.1); SGOT/AST 101 u/l (19-48); SODIUM 141 mmol/l (137-146); TOTAL PROTEIN 6.1 g/dL (6.3-8.2)
--- NOTE | 2019-12-14 06:05 | NUR ---
SLEPT FOR SHORT INTERVALS. VSS. SR ON MONITOR.
--- NOTE | 2019-12-14 21:24 | NUR ---
PATIENT ABLE TO SWALLOW HIS BEDTIME MEDS WITH WATER, NO DIFFICULTY. NURSING ASSESSMENT PERFORMED. SATS ARE 95% ON RA WITH NO EXERTION. PLACED ON 2 L/MIN NC. SOB WITH EXERTION NOTED. ALERT AND ORIENTED TO NAME, , PLACE. RIJ INTACT, NS INFUSING PROPERLY, 3 LUMENS FLUSH AND RETURN BLOOD. NO COMPLAINTS OF PAIN. SELF REPSOITIONS. URINAL AND BSC AT BEDSIDE. SR ON TELE, BP WNL. BELT CLEANER COUGH. CALL LIGHT WITHIN REACH.
--- NOTE | 2019-12-14 23:37 | NUR ---
PT UP TO BSC, EDGE ROLLER AT BEDSIDE TO ASSIST.
[2019-12-15] VITALS (11 sets, daily range): BP systolic 106–147; BP diastolic 60–96
--- NOTE | 2019-12-15 00:43 | NUR ---
PT AWAKENS EASILY WITH NOISE. NO ACUTE DISTRESS SHOWN. NO COMPLAINTS OR NEEDS AT THIS TIME. CALL LIGHT WITHIN REACH.
--- NOTE | 2019-12-15 02:33 | NUR ---
PT RESTS WITH EYES CLOSED. NO ACUTE DISTRESS SHOWN. CALL LIGHT WITHIN REACH.
--- NOTE | 2019-12-15 06:00 | NUR ---
PATIENT ASSISTED TO BSC, VOIDS YELLOW/CLEAR URINE. COCCYX IS RED. PT SAFELY BACK IN BED, DOES BECOME SOB WITH EXERTION. NC 2 L/MIN. NO OTHER NEEDS OR COMPLAINTS AT THIS TIME. CALL LIGHT WITHIN REACH.
--- NOTE | 2019-12-15 06:45 | NUR ---
RECIEVED REPORT FROM DARREN MCLAUGHLIN. ASSUMED PT CARE.
--- NOTE | 2019-12-15 08:00 | NUR ---
PT ALERT, ABLE TO MAKE NEEDS KNOWN. SR ON TELEMETRY, HR 73. PT DENIES CP, SOB OR DISTRESS AT THIS TIME. PT REFUSING BREAKFAST TRAY. ENSURE CLEAR OFFERED AND REFUSED. PT SA02@ 98% RA. NC NOT IN PLACE AT THIS TIME. RIJ/TL INFUSING D5NS@50/HR. NO S/S OF INFILTRATION OR INFECTION AT SITE. CALL LIGHT IN REACH. WILL MONITOR.
--- NOTE | 2019-12-15 08:21 | NUR ---
PT ASSISTED TO BSC, SBA.
--- NOTE | 2019-12-15 08:30 | NUR ---
DR. DOWD AT BEDSIDE FOR ASSESSMENT AND TO DISCUSS PLAN OF CARE. NEW ORDERS RECIEVED.
--- NOTE | 2019-12-15 09:57 | NUR ---
PT RESTING IN BED EYES CLOSED, RESPIRATIONS SHALLOW, SA02@98%. NO DISTRESS NOTED AT THIS TIME.
--- NOTE | 2019-12-15 12:00 | NUR ---
PT ENCOURaged to eat pb&j, pt refused, will monitor.
--- NOTE | 2019-12-15 14:19 | NUR ---
PT UP TO BSC, LOOSE WATERY BM. BACK TO BED.
--- NOTE | 2019-12-15 16:00 | NUR ---
PT RESTING WITH EYES CLOSED, RESPIRATIONS EVEN/UNLABORED. CALL LIGHT IN REACH. NO DISTRESS NOTED AT THIS TIME.
--- NOTE | 2019-12-15 18:00 | NUR ---
PT RESTING IN BED . NO DISTRESS [id number]% RA. CALL LIGHT IN REACH. WILL MONITOR.
--- NOTE | 2019-12-15 21:40 | NUR ---
PATIENT IS AWAKE, ORIENTED TO NAME, , PLACE. PT ABLE TO FOLLOW COMMANDS, ANSWER QUESTIONS. PT PLACED ON 2 L/MIN NC, SATS 98%, DOES BECOME SOB WITH EXERTION. NURSING ASSESSMENT PERFORMED. RIJ TRIPLE LUMEN INTCACT, FLSUHES PROPERLY, RETURNS BLOOD. IV FLUIDS INFUSING PROPERLY. PATIENT OFFERED ENSURE, REFUSED, PT ABLE TO GET UP TO BSC WITHOUT DIFFICULTY, URINAL AT BEDSIDE WELL. SR ON TELE, BP 140'S SYSTOLIC. ABLE TO SWALLOW MEDS WITH WATER, SELF ;REPSOITIONS. REQUESTED BLANKET, WARM BLANKET PROVIDED. CALL LIGHT WITHIN REACH.
[2019-12-16] VITALS (8 sets, daily range): BP systolic 114–139; BP diastolic 65–83
--- NOTE | 2019-12-16 00:45 | NUR ---
PATIENT RESTS WITH EYES CLOSED. NO ACUTE DISTRESS SHOWN. SATS 99% ON 2 L/MIN NC. CALL LIGHT WITHIN REACH.
--- NOTE | 2019-12-16 02:50 | NUR ---
DRESSING CHANGED ON RIJ TRIPLE LUMEN. PT IN NO ACUTE DISTRESS. UP TO BSC, SAFELY BACK IN BED. CALL LIGHT WITHIN REACH.
--- NOTE | 2019-12-16 05:23 | NUR ---
BLOOD DRAWN FOR AM LABS, PT HAS TV ON. AWAKENS EASILY WHEN SPOKEN TO. NO COMPLAINTS OR NEEDS AT THIS TIME. CALL LIGHT WITHIN REACH.
[2019-12-16 05:50] LABS: HEMATOCRIT 37.7 % (39.0-50.0); HEMOGLOBIN 11.8 g/dl (14.0-18.0); IMMATURE GRANULOCYTES 1.4 % (0.0-5.0); MEAN CELL VOLUME 96.7 fL CALC (80.0-100.0); MEAN CORPUSCULAR HGB 30.3 pG CALC (26.0-32.0); MEAN CORPUSCULAR HGB CONC 31.3 g/dL CAL (32.0-36.0); NEUT# 2.61 thou/uL (1.82-7.42); RED BLOOD COUNT 3.9 mill/uL (4.70-6.10); RED CELL DISTRI WIDTH 11.9 % (11.5-15.5)
[2019-12-16 06:05] LABS: ANION GAP 6 (6-22 (CALC)); BUN 13 mg/dL (8-23); BUN/CREATININE RATIO 17 (12-20 (CALC)); C-REACTIVE PROTEIN 4.2 mg/dL (0-0.9); CARBON DIOXIDE 32 mmol/l (22-30); CHLORIDE 106 mmol/l (95-108); CREATININE 0.7 mg/dL (0.7-1.3); GFR > 60 ML/MIN (>=60 (CALC)); GFR FOR AFR.AMER. > 60 ML/MIN (>=60 (CALC)); SODIUM 141 mmol/l (137-146)
--- NOTE | 2019-12-16 06:45 | NUR ---
RECIEVED REPORT FROM DARREN MCLAUGHLIN. ASSUMED PT CARE.
--- NOTE | 2019-12-16 07:15 | NUR ---
PT A&OX3, ABLE TO MAKE NEEDS KNOWN. PT REMAIN SR ON TELEMETRY, HR 65. PT DENIES CP, SOB OR DISTRESS AT THIS TIME. RESPIRATIONS EVEN/UNLABORED, LS COARSE THROUGHOUT, SA02@94% RA. NON-PRODUCTIVE COUGH. D5NS INFUSING @50ML/HR TO RIJ/TL. NO S/S OF INFILTRATION OR INFECTION AT SITE. COCCYX REMAINS RED. PT ENCOURAGED TO REPOSITION OFTEN. CALL LIGHT IN REACH. WILL MONITOR.
--- NOTE | 2019-12-16 08:15 | NUR ---
DR. DOWD AT BEDSIDE FOR ASSESSMENT AND TO DISCUSS PLAN OF CARE, NEW ORDERS RECIEVED. WILL MONITOR.
--- NOTE | 2019-12-16 08:40 | NUR ---
PT CAREGIVER, MARY CALLED WITH CODE, UPDATE GIVEN.
--- NOTE | 2019-12-16 09:20 | NUR ---
CPT PERFORMED VIA PERCUSSOR.
--- NOTE | 2019-12-16 10:00 | NUR ---
RT AT BEDSIDE FOR TREATMENT. PT TOLERATED WELL.
--- NOTE | 2019-12-16 12:00 | NUR ---
PT ATE 75% OF LUNCH, NO DISTRESS NOTED AT THIS TIME.
--- NOTE | 2019-12-16 16:25 | NUR ---
PATIENT ASSESSED AND VITALS TAKEN. PT IS AWAKE, ORIENTED TO NAME, , PLACE. PT ABLE TO FOLLOW COMMANDS, ANSWER QUESTIONS. PT 94%, ON ROOM AIR. NO SOB. RIJ TRIPLE LUMEN INTCACT, FLSUHES PROPERLY, RETURNS BLOOD. IV FLUIDS INFUSING PROPERLY. PT ABLE TO GET UP TO BSC WITHOUT DIFFICULTY, URINAL AT BEDSIDE WELL. SELF REPSOITIONS. REQUESTED EXTRA BLANKETS. CALL LIGHT WITHIN REACH.
--- NOTE | 2019-12-16 19:03 | NUR ---
REPORT RECEIVED FROM SEA BANKS. PT RESTING IN BED. BABY MONITOR IN PLACE FOR PT SAFETY. WILL CONTINUE TO MONITOR.
--- NOTE | 2019-12-16 20:46 | NUR ---
PT RESTING IN BED. RESPIRATIONS SHALLOW ON RA. LUNGS SOUND DIMINISHED. PEDAL PULSES WEAK. PT DENIES ANY PAIN OR DISCOMFORT AT THIS TIME. BABY MONITOR IN PLACE. FOR PT SAFETY. WILL CONTINUE TO MONITOR.
--- NOTE | 2019-12-17 00:16 | NUR ---
PT RESTING IN BED, RESPIRATIONS SHALLOW ON RA. NO S/S OF DISTRESS AT THIS TIME. SAFETY PRECAUTIONS IN PLACE. WILL CONTINUE TO MONITOR.
[2019-12-17 04:03] VITALS: BP 137/77
--- NOTE | 2019-12-17 04:03 | NUR ---
PT RESTING IN BED. NO S/S OF DISTRESS AT THIS TIME. BABY MONITOR IN PLACE. WILL CONTINUE TO MONITOR.
[2019-12-17 05:25] LABS: HEMATOCRIT 37.5 % (39.0-50.0); HEMOGLOBIN 11.9 g/dl (14.0-18.0); IMMATURE GRANULOCYTES 0.9 % (0.0-5.0); MEAN CELL VOLUME 95.7 fL CALC (80.0-100.0); MEAN CORPUSCULAR HGB 30.4 pG CALC (26.0-32.0); MEAN CORPUSCULAR HGB CONC 31.7 g/dL CAL (32.0-36.0); NEUT# 3.38 thou/uL (1.82-7.42); RED BLOOD COUNT 3.92 mill/uL (4.70-6.10); RED CELL DISTRI WIDTH 11.9 % (11.5-15.5)
[2019-12-17 05:59] LABS: ANION GAP 7 (6-22 (CALC)); BUN 12 mg/dL (8-23); BUN/CREATININE RATIO 15 (12-20 (CALC)); CARBON DIOXIDE 26 mmol/l (22-30); CHLORIDE 112 mmol/l (95-108); CREATININE 0.8 mg/dL (0.7-1.3); GFR > 60 ML/MIN (>=60 (CALC)); GFR FOR AFR.AMER. > 60 ML/MIN (>=60 (CALC)); MAGNESIUM 2.1 mg/dL (1.6-2.3); POTASSIUM 3.6 mmol/l (3.5-5.1); SODIUM 141 mmol/l (137-146)
--- NOTE | 2019-12-17 07:35 | NUR ---
REPORT RECEIVED FROM DARREN MILLER. PT RESTING ON RIGHT SIDE WITH EYES CLOSED AND NO SIGNS OF DISTRESS. RESPIRATIONS EVEN AND UNLABORED ON ROOM AIR. DENIES PAIN WHEN ASKED. ALERT WITH COGNITIVE DELAY. IV FLUIDS INFUSING INTO TL RIJ CENTRAL LINE; DRESSING CDI AND DATED 12/16/19. VSS. BED RAILS PADDED FOR HX OF SEIZURES. TOOK MEDICATIONS WHOLE AND ALL TOGETHER. ON AIRBORNE/CONTACT PRECAUTIONS FOR POSITIVE COVID RESULTS. SAFETY MEASURES IN PLACE. CALL LIGHT WITHIN REACH.
[2019-12-17 08:00] VITALS: BP 111/69
--- NOTE | 2019-12-17 12:00 | NUR ---
PT RESTING IN BED; REPOSITIONING HIMSELF IN BED. NO REQUESTS OR CONCERNS. CALL LIGHT WITHIN REACH; NEEDS ARE ANTICIPATED BY STAFF.
[2019-12-17 15:25] VITALS: BP 124/70
--- NOTE | 2019-12-17 19:00 | NUR ---
REPORT FROM DINESH BANKS. PT NOTED RESTING IN BED. NO APPARENT DISTRESS NOTED. IV SITE APPEARS HEALTHY. PT TOLERATING WELL. PT DENIES ANY PAIN OR DISCOMFORT. NO APPARENT RESPIRATORY DISTRESS NOTED. DISCUSSED POC. PT VERBALIZED UNDERSTANDING. CALL LIGHT WITHIN REACH. WILL CONTINUE TO MONITOR.
[2019-12-17 19:05] VITALS: BP 114/67
--- NOTE | 2019-12-17 20:35 | NUR ---
PT MEDICATED ORDERED. ASSESSMENT COMPLETE. PT DENIES ANY PAIN OR DISCOMFORT. NO APPARENT DISTRESS NOTED. CALL LIGHT WITHIN REACH. WILL CONTINUE TO MONITOR.
--- NOTE | 2019-12-18 00:30 | NUR ---
PT RESTING IN BED WITH EYES CLOSED. NO APPARENT DISTRESS NOTED. CALL LIGHT WITHIN REACH. WILL CONTINUE TO MONITOR.
[2019-12-18 03:51] VITALS: BP 131/78
[2019-12-18 05:50] LABS: HEMATOCRIT 37.2 % (39.0-50.0); HEMOGLOBIN 11.9 g/dl (14.0-18.0); IMMATURE GRANULOCYTES 0.8 % (0.0-5.0); MEAN CELL VOLUME 96.1 fL CALC (80.0-100.0); MEAN CORPUSCULAR HGB 30.7 pG CALC (26.0-32.0); NEUT# 3.85 thou/uL (1.82-7.42); RED BLOOD COUNT 3.87 mill/uL (4.70-6.10); RED CELL DISTRI WIDTH 11.9 % (11.5-15.5)
[2019-12-18 06:18] LABS: ALBUMIN 3.2 g/dL (3.2-5.0); ALKALINE PHOSPHATASE 119 u/l (38-126); ANION GAP 8 (6-22 (CALC)); BILIRUBIN, TOTAL 0.3 mg/dL (0.0-1.4); BUN 12 mg/dL (8-23); BUN/CREATININE RATIO 15 (12-20 (CALC)); C-REACTIVE PROTEIN 3.3 mg/dL (0-0.9); CARBON DIOXIDE 27 mmol/l (22-30); CHLORIDE 110 mmol/l (95-108); CREATININE 0.8 mg/dL (0.7-1.3); GFR > 60 ML/MIN (>=60 (CALC)); GFR FOR AFR.AMER. > 60 ML/MIN (>=60 (CALC)); POTASSIUM 3.6 mmol/l (3.5-5.1); SGOT/AST 53 u/l (19-48); SODIUM 142 mmol/l (137-146); TOTAL PROTEIN 5.9 g/dL (6.3-8.2)
[2019-12-18 08:51] VITALS: BP 114/67
--- NOTE | 2019-12-18 08:51 | NUR ---
PT LAYING IN BED. A&O X3. PT DENIES ANY SOB AT THIS TIME. CURRENTLY AFEBIRLE AND ON RA. NO OTHER NEEDS AT THIS TIME. ASSESSMENT COMPLETED. DISCUSSED POC. ISOLATION PRECAUTIONS IN PLACE. CALL LIGHT IN REACH. CONTINUE TO MONITOR.
--- NOTE | 2019-12-18 12:15 | NUR ---
PT SLEEPING IN BED. NO DISTRESS NOTED. RESP EVEN AND UNLABORED. CONTINUE TO MONITOR.
--- NOTE | 2019-12-18 15:40 | NUR ---
PT SLEEPING IN BED. NO DISTRESS NOTED. RESP EVEN AND UNLABORED. CONTINUE TO MONITOR.
[2019-12-18 16:00] VITALS: BP 119/74
--- NOTE | 2019-12-18 19:02 | NUR ---
REPORT FROM DEYSI MANDUJANO. PT NOTED RESTING IN BED. NO APPARENT DISTRESS NOTED. IV SITE APPEARS HEALTHY. PT TOLERATING WELL. PT DENIES ANY PAIN OR DISCOMFORT. NO APPARENT RESPIRATORY DISTRESS NOTED. DISCUSSED POC. PT VERBALIZED UNDERSTANDING. FRESH ICE WATER PROVIDED. CALL LIGHT WITHIN REACH. WILL CONTINUE TO MONITOR.
--- NOTE | 2019-12-18 20:20 | NUR ---
PT MEDICATED ORDERED. ASSESSMENT COMPLETE. PT DENIES ANY PAIN OR DISCOMFORT. NO APPARENT DISTRESS NOTED. CALL LIGHT WITHIN REACH. WILL CONTINUE TO MONITOR.
[2019-12-18 20:30] VITALS: BP 115/70
--- NOTE | 2019-12-19 00:10 | NUR ---
PT CALLED FOR ASSISTANCE WITH TV REMOTE IN ROOM. EDUCATED PT ON HOW TO USE REMOTE, VERBALIZED UNDERSTANDING. TOILET PAPER PROVIDED UPON REQUEST. PT DENIES ANY OTHER WANTS OR NEEDS. CALL LIGHT WITHIN REACH. WILL CONTINUE TO MONITOR.
[2019-12-19 04:00] VITALS: BP 135/83
--- NOTE | 2019-12-19 04:33 | NUR ---
PT RESTING IN BED WITH EYES CLOSED. NO APPARENT DISTRESS NOTED. RESPIRATIONS EVEN AND UNLABORED. CALL LIGHT WITHIN REACH. WILL CONTINUE TO MONITOR.
--- NOTE | 2019-12-19 06:37 | NUR ---
PT note 12/18/19 Patient doing very well. I took the o2 sat monitor in and he remained above 93% for standing and marching in place for 2 min with vitals stable. His only symptom was fatigue. He was able to cough on command and this increased his sat to 95% on RA. He is doing well with function. I encouraged increased activity although with his mentation level, he will need reminders and facilitationon
[2019-12-19 07:44] VITALS: BP 136/79
--- NOTE | 2019-12-19 09:56 | NUR ---
PT SEEN AWAKE, ALERT, ORIENTED X 2 PER NOORMAL FOR HIM. LUNGS CLEAR BUT DIMINISHED, RA. NO COMPLAINT OF FERREIRA.
--- NOTE | 2019-12-19 12:51 | NUR ---
PT REMAINS BEFORE, NO SIGNIFICANT CHANGE IN STATUS. NO REPORT OF PAIN, NO SHORTNESS OF BREATH.
[2019-12-19 15:30] VITALS: BP 114/66
--- NOTE | 2019-12-19 17:31 | NUR ---
PT CONTINUES BEFORE, USES BSC NEEDED. NO DIARRHEA, NO SHORTNESS OF BREATH.
--- NOTE | 2019-12-19 19:05 | NUR ---
REPORT FROM GISELLA BANKS. PT NOTED RESTING IN BED. NO APPARENT DISTRESS NOTED. IV SITE APPEARS HEALTHY. PT DENIES ANY PAIN OR DISCOMFORT. NO APPARENT RESPIRATORY DISTRESS NOTED. DISCUSSED POC. PT VERBALIZED UNDERSTANDING. FRESH ICE WATER PROVIDED. CALL LIGHT WITHIN REACH. WILL CONTINUE TO MONITOR.
[2019-12-19 19:13] VITALS: BP 126/60
--- NOTE | 2019-12-19 21:23 | NUR ---
PT MEDICATED ORDERED. PT DENIES ANY PAIN OR DISCOMFORT. NO APPARENT DISTRESS NOTED. ASSISTED PT WITH TV ON AND EDUCATED ON REMOTE USE. PT VERBALIZED AND DEMONSTRATED UNDERSTANDING. CALL LIGHT WITHIN REACH. WILL CONTINUE TO MONITOR.
--- NOTE | 2019-12-20 01:22 | NUR ---
PT RESTING IN BED WITH EYES CLOSED. NO APPARENT DISTRESS NOTED. RESPIRATIONS EVEN AND UNLABORED. CALL LIGHT WITHIN REACH. WILL CONTINUE TO MONITOR.
[2019-12-20 04:00] VITALS: BP 97/69
--- NOTE | 2019-12-20 04:43 | NUR ---
PT RESTING IN BED WITH EYES CLOSED. NO APPARENT DISTRESS NOTED. RESPIRATIONS EVEN AND UNLABORED. CALL LIGHT WITHIN REACH. WILL CONTINUE TO MONITOR.
--- NOTE | 2019-12-20 07:47 | NUR ---
PATIENT IS AWAKE, ORIENTED TO NAME, , PLACE. PT ABLE TO FOLLOW COMMANDS, ANSWER QUESTIONS. PT PLACED ON 2 L/MIN NC, SATS 98%, DOES BECOME SOB WITH EXERTION. NURSING ASSESSMENT PERFORMED. RIJ TRIPLE LUMEN INTCACT, FLSUHES PRROPERLY, RETURNS BLOOD. IV FLUIDS INFUSING PROPERLY. ABLE TO GET UP TO BSC WITHOUT DIFFICULTY, URINAL AT BEDSIDE ABLE TO SWALLOW MEDS WITH WATER, SELF REPSOITIONS. REQUESTED BLANKET, WARM BLANKET PROVIDED. CALL LIGHT WITHIN EACH.
[2019-12-20 08:04] VITALS: BP 120/73
--- NOTE | 2019-12-20 12:40 | NUR ---
PT CONTINUES BEFORE, NO EVIDENCE OF DISTRESS. RESTING QUIETLY. NO SOB, ORIENTED TO SELF. SLOW STEADY GAIT TO [facility]. IV SITE REMAINS PATENT.CALL ENGLISH WITH IN REACH. WILL CONTINUE TO OBSERVE.
[2019-12-20 14:40] VITALS: BP 112/69
[2019-12-20 16:02] LABS: ANION GAP 7 (6-22 (CALC)); BUN 20 mg/dL (8-23); BUN/CREATININE RATIO 22 (12-20 (CALC)); CARBON DIOXIDE 32 mmol/l (22-30); CHLORIDE 106 mmol/l (95-108); CREATININE 0.9 mg/dL (0.7-1.3); GFR > 60 ML/MIN (>=60 (CALC)); GFR FOR AFR.AMER. > 60 ML/MIN (>=60 (CALC)); SODIUM 140 mmol/l (137-146)
--- NOTE | 2019-12-20 17:37 | NUR ---
PT CONTINUES BEFORE, NO EVIDENCE OF DISTRESS IV SITE REMAINS PATENT.CALL ENGLISH WITH IN REACH. WILL CONTINUE TO OBSERVE.
[2019-12-20 19:00] VITALS: BP 94/54
--- NOTE | 2019-12-20 19:02 | NUR ---
REPORT FROM SEA BANKS. PT NOTED RESTING IN BED. NO APPARENT DISTRESS NOTED. IV SITE APPEARS HEALTHY. PT DENIES ANY PAIN OR DISCOMFORT. NO APPARENT RESPIRATORY DISTRESS NOTED. DISCUSSED POC. PT VERBALIZED UNDERSTANDING. FRESH ICE WATER PROVIDED. CALL LIGHT WITHIN REACH. WILL CONTINUE TO MONITOR.
--- NOTE | 2019-12-20 20:24 | NUR ---
PT MEDICATED ORDERED. ASSESSMENT COMPLETE. PT DENIES ANY PAIN OR DISCOMFORT. NO APPARENT DISTRESS NOTED. CALL LIGHT WITHIN REACH. WILL CONTINUE TO MONITOR.
--- NOTE | 2019-12-21 00:01 | NUR ---
PT RESTING IN BED. NO APPARENT DISTRESS NOTED. RESPIRATIONS EVEN AND UNLABORED. CALL LIGHT WITHIN REACH. WILL CONTINUE TO MONITOR.
--- NOTE | 2019-12-21 04:23 | NUR ---
PT RESTING IN BED. NO APPARENT DISTRESS NOTED. RESPIRATIONS EVEN AND UNLABORED. CALL LIGHT WITHIN REACH. WILL CONTINUE TO MONITOR.
[2019-12-21 04:30] VITALS: BP 118/76
--- NOTE | 2019-12-21 07:15 | NUR ---
REPORT RECEIVED FROM DELBERT BERGER.
--- NOTE | 2019-12-21 08:55 | NUR ---
PT RESTING IN SEMI FOWLERS POSITION,A&O X2;VS OBTAINED AND ASSESSMENT COMPLETED;PT DENIES ANY CURRENT PAIN OR DISCOMFORTS,PAIN SCALE AND REPORTING EDUCATED;RESPIRATIONS EVEN AND UNLABORED ON RA,CLEAR LUNG SOUNDS;ABDOMEN SOFT ON PALPATION AND ACTIVE IN ALL 4 QUADRANTS;STRONG PEDAL PULSES;SKIN INTACT;RT TRIPLE LUMEN FLUSHED AND PATENT,SITE APPEARS HEALTHY;PT DENIES ANY ADDITIONAL NEEDS AT THIS TIME AND IS ENCOURAGED TO CALL FOR ASSISTANCE IF NEEDED;FALL PRECAUTIONS REMAIN IN PLACE WITH BED IN THE LOWEST POSITION AND CALL LIGHT IN REACH.SEIZURE PRECAUTIONS ALSO IN PLACE;WILL CONTINUE TO MONITOR
[2019-12-21 08:57] VITALS: BP 99/60
[2019-12-21] MEDS ORDERED: DEXAMETHASON6 MG PO (12:42)
--- NOTE | 2019-12-21 13:20 | NUR ---
PT APPEARS TO BE SLEEPING IN SUPINE POSITION,WAKES EASILY TO VERBAL STIMULI;RESPIRATIONS EVEN AND UNLABORED ON RA;PT DENIES ANY CURRENT PAIN OR NEEDS;IV SITE PATENT;ASSESSMENT REMAINS UNCHANGED AT THIS TIME;ENCOURAGED TO CALL FOR ASSISTANCE IF NEEDED;CALL LIGHT IN REACH;WILL CONTINUE TO MONITOR
[2019-12-21 15:50] VITALS: BP 118/66
--- NOTE | 2019-12-21 15:50 | NUR ---
PT RESTING IN SEMI FOWLERS POSITION;RESPIRATIONS EVEN AND UNLABORED ON RA;PT DENIES ANY CURRENT PAIN OR DISCOMFORTS;IV SITE PATENT;VS OBTAINED;PT DENIES ANY NEEDS AT THIS TIME AND IS ENCOURAGED TO CALL FOR ASSISTANCE IF NEEDED;FALL PRECAUTIONS IN PLACE WITH CALL LIGHT IN REACH;WILL CONTINUE TO MONITOR
[2019-12-21 19:19] VITALS: BP 100/60
--- NOTE | 2019-12-21 21:28 | NUR ---
PT MEDICATED ORDERS PROVIDE. ASSISTED PT WITH REPOSITIONING IN BED. PT DENIES ANY NEEDS AT THIS TIME, OFFERED SNACK, DRINK PILLOW, BLANKETS/ DENIED ADDITIONAL.NO S/O DISTRESS NOTED. ASSESSMENT COMPLETED ALSO AT THIS TIME. PT ENCOURAGED TO CALL NEEDS ARISE. BED IN LOWEST POSITON AND CAMERA ON PT FOR SAFETY MONITORING, BSC AT BEDSIDE
[2019-12-21 22:00] VITALS: BP 112/71
--- NOTE | 2019-12-22 02:00 | NUR ---
PT SLEEPING, NO S/O DISTRESS NOTED. CALL LIGHT W/IN REACH BED IN LOWEST POSITION AND CAMERA ON FOR SAFETY MONITORING.
[2019-12-22 04:00] VITALS: BP 106/63
--- NOTE | 2019-12-22 04:05 | NUR ---
AIDE IN W/PT, V/S OBTAINED AT THIS TIME. CAMERA IS IN ROOM W/PT FOR MONITORING FOR SAFETY.
--- NOTE | 2019-12-22 06:25 | NUR ---
BUTTONHOLE FACER IN W/PT. NO S/O DISTRESS NOTED.
--- NOTE | 2019-12-22 07:10 | NUR ---
REPORT RECEIVED FROM DARREN NGO.
[2019-12-22 08:38] VITALS: BP 101/73
--- NOTE | 2019-12-22 08:38 | NUR ---
PT RESTING ON SIDE OF BED EATING BREAKFAST,A&O X2;VS OBTAINED AND ASSESSMENT COMPLETED;PT DENIES ANY CURRENT PAIN OR DISCOMFORTS,PAIN SCALE AND REPORTING EDUCATED;RESPIRATIONS EVEN AND UNLABORED ON RA,DIMINISHED LUNG SOUNDS NOTED;ABDOMEN SOFT ON PALPATION AND ACTIVE IN ALL 4 QUADRANTS;STRONG PEDAL PULSES;SKIN INTACT;RIJ TL FLUSHED AND PATENT,SITE APPEARS HEALTHY;AWAITING COVID19 RESULTS FOR D/C BACK TO [facility], PT REMAINS IN AIR/CONTACT PRECAUTIONS UNTIL RESULTS ARE OBTAINED;SEIZURE PRECAUTIONS IN PLACE;PT ENCOURAGED TO CALL FOR ASSISTANCE IF NEEDED;FALL PRECAUTIONS NOTED WITH BED IN THE LOWEST POSITION AND CALL LIGHT IN REACH;WILL CONTINUE TO MONITOR
--- NOTE | 2019-12-22 09:40 | NUR ---
RIJ TL REMOVED AT THIS TIME PER ORDER BY DARREN BALTAZAR WITH CATHETER INTACT;PT TOLERATED WELL;WILL CONTINUE TO MONITOR
--- NOTE | 2019-12-22 11:40 | NUR ---
PT APPEARS TO BE SLEEPING IN SEMI FOWLERS POSITION;NO S/S OF DISTRESS NOTED;RESPIRATIONS EVEN AND UNLABORED ON RA;ALL SAFETY PRECAUTIONS REMAIN IN PLACE INCLUDING SEIZURE;BED REMAINS IN THE LOWEST POSITION WITH CALL LIGHT IN REACH;WILL CONTINUE TO MONITOR
--- NOTE | 2019-12-22 14:27 | NUR ---
CALL RECEIVED FROM LAB REPORTING COVID19 RESP PANEL RESULTING POSITIVE;VAL[facility]IE ANRP NOTIFIED;WILL CONTINUE TO MONITOR
[2019-12-22 14:45] VITALS: BP 109/66
--- NOTE | 2019-12-22 15:28 | NUR ---
PT RESTING IN SEMI FOWLERS POSITION;RESPIRATIONS EVEN AND UNLABORED ON RA;PT DENIES ANY CURRENT PAIN OR NEEDS;PT EDUCATED ON RESP PANEL RESULTS AND HOW D/C WILL BE HELD UNTIL HE CAN TEST NEGATIVE TO GO BACK TO [facility],PT VERBALIZES UNDERSTANDING;PT DENIES ANY ADDITIONAL NEEDS AT THIS TIME AND IS ENCOURAGED TO CALL FOR ASSISTANCE IF NEEDED;SEIZURE AND FALL PRECAUTIONS REMAIN IN PLACE;CALL LIGHT IN REACH;WILL CONTINUE TO MONITOR
--- NOTE | 2019-12-22 15:46 | NUR ---
PT note Patient is getting up and walking independently inn the room with vitals stable. For now, we will DC as he has met inpatient PT goals and is not desaturating with activity. We will resume if he begins to decline in function
[2019-12-22 19:06] VITALS: BP 116/67
--- NOTE | 2019-12-22 22:01 | NUR ---
PT MEDICATED ORDERS PROVIDE AND ASSESSMENT COMPLETED AT THIS TIME. SNACK OFFERED ALONG WITH ICECREAM, JUICE, PUDDING, SANDWICH, PT DENIED (SNACKS LEFT AT BEDSIDE IN CASE PT CHANGED MIND). PT REORIENTED TO BED CONTROLS, LIGHTS AND CALLING FOR ASSISTANCE. PT VERBALIZED UNDERSTANDING. LIGHTS ARE OFF, TV ON BUT [facility] DOORS ARE CLOSED/I OFFERED TO OPEN BUT PT REFUSED WANTING THEM KEPT CLOSED. BED IN LOWEST POSITION, BSC AND TABLE NEAR, CALL LIGHT W/IN REACH ON TABLE AND LIGHTS ARE TURNED OFF TO PT PREFERENCE.
--- NOTE | 2019-12-22 22:44 | NUR ---
SNACKS WERE LEFT AT BEDSIDE IN CASE PT CHANGED HIS MIND. PT NOW VISUALIZED ON CAMERA EATING/DRINKING SNACKS PROVIDED. WILL CONTINUE TO OFF AND PROVIDE NUTRITION EVEN WHEN DENIED NEED FOR. PT IS VERY UNDERWEIGHT.
--- NOTE | 2019-12-23 03:10 | NUR ---
PT SLEEPING, NO S/O DISTRESS NOTED. AWOKE TO MY ENTERING ROOM, DENIED ANY NEEDS. CALL LIGHT AT SIDE AND PT REMINDED OF ITS USE.
[2019-12-23 04:25] VITALS: BP 124/74
[2019-12-23 05:57] LABS: HEMATOCRIT 40.5 % (39.0-50.0); HEMOGLOBIN 12.7 g/dl (14.0-18.0); IMMATURE GRANULOCYTES 0.8 % (0.0-5.0); MEAN CELL VOLUME 96.7 fL CALC (80.0-100.0); MEAN CORPUSCULAR HGB 30.3 pG CALC (26.0-32.0); MEAN CORPUSCULAR HGB CONC 31.4 g/dL CAL (32.0-36.0); NEUT# 4.64 thou/uL (1.82-7.42); RED BLOOD COUNT 4.19 mill/uL (4.70-6.10); RED CELL DISTRI WIDTH 12.6 % (11.5-15.5)
[2019-12-23 06:28] LABS: ALBUMIN 3.6 g/dL (3.2-5.0); ALKALINE PHOSPHATASE 110 u/l (38-126); ANION GAP 10 (6-22 (CALC)); BILIRUBIN, TOTAL 0.2 mg/dL (0.0-1.4); BUN 25 mg/dL (8-23); BUN/CREATININE RATIO 34 (12-20 (CALC)); C-REACTIVE PROTEIN 1.1 mg/dL (0-0.9); CARBON DIOXIDE 27 mmol/l (22-30); CHLORIDE 105 mmol/l (95-108); CREATININE 0.7 mg/dL (0.7-1.3); GFR > 60 ML/MIN (>=60 (CALC)); GFR FOR AFR.AMER. > 60 ML/MIN (>=60 (CALC)); POTASSIUM 4.4 mmol/l (3.5-5.1); SGOT/AST 31 u/l (19-48); SODIUM 137 mmol/l (137-146); TOTAL PROTEIN 6.4 g/dL (6.3-8.2)
[2019-12-23 08:07] VITALS: BP 107/69
--- NOTE | 2019-12-23 11:53 | NUR ---
PT ASSESSMENT AND VITALS COMPLETE. RESTING QUIETLY ;RESPIRATIONS EVEN AND UNLABORED ON ROOM AIR. PT DENIES ANY ADDITIONAL NEEDS AT THIS TIME AND IS ENCOURAGED TO CALL FOR ASSISTANCE IF NEEDED;SEIZURE AND FALL PRECAUTIONS REMAIN IN PLACE;CALL LIGHT IN REACH. WILL CONTINUE TO MONITOR
--- NOTE | 2019-12-23 12:56 | NUR ---
PT SEEN ALERT AND ORIENTED. DENIES PAIN. NO EVIDENCE OF DISTRESS. NO SHORTNESS OF BREATH. DISCUSSED POC. CALL ENGLISH WITHIN REACH. WILL CONTINUE TO OBSERVE.
[2019-12-23 16:57] VITALS: BP 132/67
--- NOTE | 2019-12-23 19:02 | NUR ---
REPORT FROM [facility]. PT NOTED RESTING IN BED WITH EYES CLOSED. PT WAKES EASILY. ALERT AND ORIENTED X2. NO APPARENT DISTRESS NOTED. RESPIRATIONS EVEN AND UNLABORED. DISCUSSED POC . PT VERBALIZED UNDERSTANDING. PT DENIES ANY CURRENT WANTS OR NEEDS. CALL LIGHT WITHIN REACH. WILL CONTINUE TO MONITOR.
[2019-12-23 19:26] VITALS: BP 110/62
--- NOTE | 2019-12-23 23:15 | NUR ---
PT RESTING IN BED. NO APPARENT DISTRESS NOTED. RESPIRATIONS EVEN AND UNLABORED. CALL LIGHT WITHIN REACH. WILL CONTINUE TO MONITOR.
--- NOTE | 2019-12-24 03:26 | NUR ---
PT RESTING IN BED. NO APPARENT DISTRESS NOTED. RESPIRATIONS EVEN AND UNLABORED. CALL LIGHT WITHIN REACH. WILL CONTINUE TO MONITOR.
[2019-12-24 05:15] VITALS: BP 120/71
--- NOTE | 2019-12-24 08:06 | NUR ---
PATIENT IS AWAKE, ORIENTED TO NAME, , PLACE. PT ABLE TO FOLLOW COMMANDS, ANSWER QUESTIONS. PT ON ROOM AIR SATS 97%, NO SHORTNESS OF BREATH. NURSING ASSESSMENT AND VITALS PERFORMED. PT ABLE TO GET UP TO BSC WITHOUT DIFFICULTY, SELF REPSOITIONS. POC DISCUSSED CALL LIGHT WITHIN REACH.
[2019-12-24 08:07] VITALS: BP 106/59
[2019-12-24 15:00] VITALS: BP 113/80
--- NOTE | 2019-12-24 16:15 | NUR ---
PT LAYING IN BED RESTING, NO APPARENT DISTRESS, RESPIRATIONS REG & UNLABORED. PT DENIES ANY OTHER NEEDS AT THIS TIME. ITEMS WITHIN REACH BED LOCKED IN LOW POSITION W/ BEDRAILS UP X2. CALL ENGLISH WITHIN REACH, AGREES TO CALL PRN.
[2019-12-24 19:07] VITALS: BP 114/67
--- NOTE | 2019-12-24 21:21 | NUR ---
PT MEDICATED ORDERED. NO APPARENT DISTRESS NOTED. PT DENIES ANY PAIN OR DISCOMFORT. NO CURRENT WANTS OR NEEDS. CALL LIGHT WITHIN REACH. WILL CONTINUE TO MONITOR.
--- NOTE | 2019-12-25 00:37 | NUR ---
PT RESTING IN BED WITH EYES CLOSED. NO APPARENT DISTRESS NOTED. RESPIRATIONS EVEN AND UNLABORED. CALL LIGHT WITHIN REACH. WILL CONTINUE TO MONITOR.
--- NOTE | 2019-12-25 04:06 | NUR ---
PT RESTING IN BED WITH EYES CLOSED. NO APPARENT DISTRESS NOTED. RESPIRATIONS EVEN AND UNLABORED. CALL LIGHT WITHIN REACH. WILL CONTINUE TO MONITOR.
[2019-12-25 04:26] VITALS: BP 108/68
[2019-12-25 08:00] VITALS: BP 97/64
--- NOTE | 2019-12-25 09:00 | NUR ---
PT SEEN AT REST IN THE BED, ALERT AND ORIENTED NORMAL FOR HIM. LUNGS ARE CLEAR, RA. NO COMPLAINTS OF CHEST PAIN OR SHORTNESS OF BREATH. PT UP TO BSC NEEDED WITHOUT ASSIST.
--- NOTE | 2019-12-25 13:53 | NUR ---
PT CONTINUES BEFORE, NO COMPLAINTS, NO DISTRESS.
[2019-12-25 15:38] VITALS: BP 106/62
--- NOTE | 2019-12-25 17:04 | NUR ---
STATUS REMAINS UNCHANGED PT SEEN RESTING IN THE BED, VOICES NO COMPLAINTS.
[2019-12-25 19:20] VITALS: BP 111/64
--- NOTE | 2019-12-25 22:30 | NUR ---
PHYSICAL ASSESMENT COMPLETE. SCHEDULED MEDICATIONS ADMINISTERED, SEE E-MAR. PT DENIES ANY NEEDS AT THIS TIME. PLAN OF CARE REVIEWED. PT DENIES QUESTIONS, VERBALIZES UNDERSTANDING. PERSONAL ITEMS WITHIN REACH. BED LOCKED IN LOW POSITION WITH BEDRAILS UP X2. CALL ENGLISH WITHIN REACH, AGREES TO CALL PRN.
--- NOTE | 2019-12-26 01:17 | NUR ---
PT APPEARS TO BE SLEEPING COMFORTABLY, NO APPARENT DISTRESS, RESPIRATIONS REGULAR AND UNLABORED. PERSONAL ITEMS REMAIN WITHIN REACH. BED REMAINS LOCKED IN LOW POSITION WITH BEDRAILS UP X2. CALL ENGLISH REMAINS WITHIN REACH.
[2019-12-26 04:15] VITALS: BP 114/70
--- NOTE | 2019-12-26 04:53 | NUR ---
PT RESTING IN BED COMFORTABLY WITH NO APPARENT DISTRESS OR DISCOMFORT. PT DENIES NEEDS AT THIS TIME. ITEMS REMAIN WITHIN REACH, BED REMAINS LOCKED IN LOW POSITION W/ BEDRAILS UP X2.CALL ENGLISH REMAINS WITHIN REACH, AGREES TO CALL PRN.
--- NOTE | 2019-12-26 09:30 | NUR ---
PT IS IN BED WITH EYES OPEN. PT RESPONDS "NO" TO QUESTIONS BEING ASKED. RESPIRATION ARE EVEN AND NON LABORED. MEDICATIONS GIVEN AND TOLERATED WELL. PT HAS NO COUGH OR CONGESTION NOTED. CONTINUES ON DEXAMETHASONE THERAPY. CONTINUES ON lOVENOX THERAPY WITH WITH NO S/S OF BLEEDING OR HEMORRHAGE. CALL LIGHT IS WITHIN REACH. BED IN LOWEST POSITION AND CAMAERA AT BEDSIDE FOR SAFETY.
[2019-12-26 10:01] VITALS: BP 115/69
[2019-12-26 15:00] VITALS: BP 94/57
--- NOTE | 2019-12-26 16:09 | NUR ---
PT IN BED WITH EYES CLOSED. NO S/S OF DISTRESS. RESPIRATION EVEN AND NON LABORED. MEDICATIONS GIVEN AND TOLERATED WELL. MEAL AND FLUID INTAKE ADEQUATE. ENCOURAGED REPOSITIONG IN BED TO PREVENT SKIN BREAKDOWN. HOB ELEVATED AND CALL LIGHT IS WITHIN REACH. WILL CONTINUE TO OBSERVE
--- NOTE | 2019-12-26 19:00 | NUR ---
REPORT RECEIVED FROM Uli STUART RN, CARE OF PT ASSUMED AT THIS TIME.
[2019-12-26 19:20] VITALS: BP 101/57
[2019-12-26 19:30] VITALS: BP 101/57
--- NOTE | 2019-12-26 21:10 | NUR ---
PHYSICAL ASSESMENT COMPLETE. PT CURRENTLY DENIES PAIN OR DISCOMFORT. SCHEDULED MEDS ADMINISTERED, SEE E-MAR. PT PROVIDED WITH HS SNACK. PT DENIES ANY NEEDS AT THIS TIME. PLAN OF CARE REVIEWED, PT DENIES QUESTIONS, NODS UNDERSTANDING. WILL RE-INFORCE CARE PLAN PRN. ITEMS WITHIN REACH, BED LOCKED IN LOW POSITION W/ BEDRAILS UP X2. CALL ENGLISH WITHIN REACH, AGREES TO CALL PRN.
--- NOTE | 2019-12-27 00:34 | NUR ---
PT APPEARS TO BE SLEEPING COMFORTABLY, NO APPARENT DISTRESS, RESPIRATIONS REGULAR AND UNLABORED. ITEMS REMAIN WITHIN REACH, BED REMAINS LOCKED IN LOW POSITION W/ BEDRAILS UP X2. CALL ENGLISH REMAINS WITHIN REACH.
[2019-12-27 04:46] VITALS: BP 109/66
--- NOTE | 2019-12-27 05:44 | NUR ---
ASSESMENT UNCHANGED FROM BEGINING OF SHIFT BASELINE ASSESMENT. AM HEMODYNAMICS WNL/ STABLE. PT AFEBRILE. PT DENIES NEEDS AT THIS TIME. ITEMS REMAIN WITHIN REACH, BED REMAINS LOCKED IN LOW POSITION W/ BEDRAILS UP X2.CALL ENGLISH REMAINS WITHIN REACH, AGREES TO CALL PRN.
--- NOTE | 2019-12-27 07:30 | NUR ---
rECEIVED REPORT ON PT AND IN BED WITH EYES CLOSED. NO S/S OF DISRESS. NO RESPIRATORY DISTRESS NOTED.
[2019-12-27 08:30] VITALS: BP 97/53
--- NOTE | 2019-12-27 10:30 | NUR ---
PT IN BED WITH EYES OPEN AND NOT ABLE TO VERBALIZE NEEDS. RESPIRATIONS ARE EVEN AND NON ALABORED. NON PRODUCTIVE COUGH NOTED. MEAL AND FLUID INTAKE GOOD. MEDICATIONS GIVEN AND TOLERATED WELL. PT CONTINUES ON DECADRON THERAPY. ON LOVENOX AND NO S/S OF HEMORRHAGE OR BLEEDING. PT CONTINENT OF B/B AND USES THE BEDSIDE COMMODE WHEN NEEDED. BED IS IN LOWEST POSITION AND CAMERA IN ROOM FOR INCREASED SUPERVISION AND SAFETY.
[2019-12-27 15:00] VITALS: BP 98/54
--- NOTE | 2019-12-27 19:00 | NUR ---
REPORT RECEIVED FROM Uli STUART RN, CARE OF PT ASSUMED AT THIS TIME.
[2019-12-27 19:05] VITALS: BP 115/64
[2019-12-28 04:36] VITALS: BP 113/69
--- NOTE | 2019-12-28 09:00 | NUR ---
PT IS SEEN RESTING IN THE STRETCHER, DROWSY BUT ALERT AND ORIENTED TO SELF AND LOCATION. LUNGS CLEAR BUT DIMINISHED, NO SHORTNESS OF BREATH. NO REPORT OF PAIN, NO EVIDENCE OF DISTRESS.
--- NOTE | 2019-12-28 13:00 | NUR ---
PT REMAINS AT REST IN THE BED, NO DISTRESS, NO SHORTNESS OF BREATH.
[2019-12-28 14:55] VITALS: BP 103/63
--- NOTE | 2019-12-28 19:00 | NUR ---
RECEIVED REPORT FROM NURSE OBANDO PATIENT RESTING IN BED WITH EYES CLOSED, NOT IN DISTRESS BREATHING EVEN UNLABORED CALL LIGHT AT REACH.
[2019-12-28 19:22] VITALS: BP 115/70
--- NOTE | 2019-12-28 21:00 | NUR ---
PATIENT ALERT ORIEDNTED X 2, BREATHING EVEN UNLABORED, DENIES PAIN OR DISCOMFORTS, BOWEL SOUNDS ACTIVE ON ALL QUADRANTS, SNACKS PROVIDE, CALL LIGHT AT REACH.
--- NOTE | 2019-12-29 | NUR ---
PATIENT RESTING IN BED WITH EYES CLOSED, BREATHING EVEN UNLABORED CALL LIGHT AT REACH.
[2019-12-29 04:00] VITALS: BP 103/63
--- NOTE | 2019-12-29 05:11 | NUR ---
PATIENT APPEARS TO BE SLEEPING WITH EYES CLOSED, BREATHING EVEN UNLABORED CALL LIGHT AT REACH.
[2019-12-29 07:50] VITALS: BP 108/78
--- NOTE | 2019-12-29 11:33 | NUR ---
PT SEEN AWAKE AND ALERT HE RESTS IN THE BED. PT STATES THAT HE DOES NOT FEEL GREAT THIS MORNING. NO EVIDENCE OF DISTRESS, VSS.
--- NOTE | 2019-12-29 13:50 | NUR ---
PT REMAINS AT REST IN THE BED, NO ACUTE DISTRESS NOTED.
[2019-12-29 14:50] VITALS: BP 111/61
--- NOTE | 2019-12-29 16:08 | NUR ---
pt required max VC to participate however he did stand up and perform weight shifting and marching in place for 2mins. Then he took a seated rest break and stood up again to perform weight shifting for another 2 mins. He reported he was too tired to ambulate.
--- NOTE | 2019-12-29 17:07 | NUR ---
PT SEEN RESTING IN THE BED WITH EYES CLOSED THIS AFTERNOON. PHYSICAL THERAPIST ENTERED ROOM, PT PARTICIPATED IN STANDING EXERCIZES.
--- NOTE | 2019-12-29 19:10 | NUR ---
RECEIVED REPORT NURSE GISELLA, PATIENT IS RESTING IN BED NOT IN DISTRESS CALL LIGHT AT REACH.
[2019-12-29 19:17] VITALS: BP 118/67
--- NOTE | 2019-12-29 21:30 | NUR ---
PATIENT ALERT TO SELF ABLE, BREATHING EVEN AND UNLABORED, REMAINS ON AIRBORNE/DROPLET PRECAUTION, ON SEIZURE PREDCAUTION, DENIES PAIN AND DISCOMFORTS CALL LIGHT AT REACH.
--- NOTE | 2019-12-30 | NUR ---
PATIENT APPEARS TO BE RESTING COMFORTABLEY BREATHIN UNLABORED, CALL LIGHT AT REACH/
[2019-12-30 04:04] VITALS: BP 108/69
--- NOTE | 2019-12-30 04:49 | NUR ---
PATIENT APPEARS TO BE SLEEPING WITH EYES CLSOED, BREATHING UNLABORED, CALL LIGHT AT REACH.
[2019-12-30 09:00] VITALS: BP 100/52
--- NOTE | 2019-12-30 09:00 | NUR ---
PT IN BED WITH EYES OPEN. ABLE TO MAKE NEEDS KNOWN WHEN ASKED. VITALS ARE STABLE. RESPIRATIONS ARE EVEN AND NON LABORED. PT TO BE TRANSFERRED TO [facility]. MEAL AND FLUID INTAKE ADEQUATE. USES BSC WITH NO COMPLICATIONS. CALL LIGHT WITHIN REACH. WILL CONTINUE TO OBSERVE
[2019-12-30] MEDS ORDERED: DEXAMETHASON6 MG PO (10:36)
--- NOTE | 2019-12-30 14:00 | NUR ---
PT WAS DISCHARGE TO [facility]. ALL PERTINENT PAPERS SENT WITH PATIENT. SHOWER WAS GIVEN AND SKIN ASSESSED AND NO SKIN CONCERNS NOTED. rEPORT WAS CALLED IN TO NURSE CARING FOR PT AT [facility]. PT WAS TRANSFERRED BY VERONICA
== END 2019-12-30 14:27 | DRG 871 ==
LOC: ED 10:18 → ED-I 12:40 → ED 12:51 → ICU 12:52 → ED-I 12:52 → MS2 12:56 → ICU 23:30 → MS2 12-16 15:00
PROVIDERS: Internal Medicine; Nurse Practitioner; ADMIT Internal Medicine; ATTEND Internal Medicine
PROC: 05HM33Z Insertion of Infusion Device into Right Internal Jugular Vein, Percutaneous Approach (ICD-10-PCS; principal; 2019-12-07)
DX: A41.89 Other specified sepsis (principal); U07.1 COVID-19; J12.89 Other viral pneumonia; J96.01 Acute respiratory failure with hypoxia; R65.21 Severe sepsis with septic shock; I95.9 Hypotension, unspecified; Q86.0 Fetal alcohol syndrome (dysmorphic); F79 Unspecified intellectual disabilities; G40.909 Epilepsy, unspecified, not intractable, without status epilepticus; R43.9 Unspecified disturbances of smell and taste; K52.29 Other allergic and dietetic gastroenteritis and colitis; R31.29 Other microscopic hematuria; Z85.820 Personal history of malignant melanoma of skin; Z87.440 Personal history of urinary (tract) infections
CPT/HCPCS: J1650

== ENCOUNTER 2020-06-26 22:00 | Inpatient (IN) | payer OTHER ==
[~2020-06-26] VITALS: Ht 182.9 cm; Wt 65.0 kg
[~2020-06-26 22:00] MED LIST changes: +DEXAMETHASON6 MG PO
--- NOTE | 2020-06-26 22:05 | NUR ---
PT WHEELED TO ROOM # 10 FOR BEDSIDE TRIAGE.
--- NOTE | 2020-06-26 22:30 | NUR ---
POWERHOUSE OILER BEDSIDE FOR BLOOD DRAW. IV INITIATED TO LAC WITH SECOND SET OF BLOOD CULTURES OBTAINED. PT TOLERATED WELL. PLACED ON EXTRACTOR TENDER RAW STOCK. CALL LIGHT PROVIDED. ADVISED OF WAIT TIME FOR RESULTS. VERALIZED UNDERSTANDING.
[2020-06-26 22:51] LABS: HEMATOCRIT 42.8 % (39.0-50.0); HEMOGLOBIN 13.9 g/dl (14.0-18.0); IMMATURE GRANULOCYTES 0.8 % (0.0-5.0); MEAN CELL VOLUME 94.9 fL CALC (80.0-100.0); MEAN CORPUSCULAR HGB 30.8 pG CALC (26.0-32.0); MEAN CORPUSCULAR HGB CONC 32.5 g/dL CAL (32.0-36.0); NEUT# 17.9 thou/uL (1.82-7.42); RED BLOOD COUNT 4.51 mill/uL (4.70-6.10); RED CELL DISTRI WIDTH 11.9 % (11.5-15.5)
--- NOTE | 2020-06-26 23:00 | NUR ---
IVF INITIATED TO LAC SITE AND INFUSING WITHOUT DIFFICULY. RESTING ON STRETCHER IN NO APPARENT DISTRESS. SKIN WARM AND DRY. AUTOMATED WEAVER IN PLACE. VOICES NO COMPLAINTS AT THIS TIME. CALL LIGHT PROVIDED.
[2020-06-26 23:01] LABS: ALBUMIN 4.1 g/dL (3.2-5.0); ALKALINE PHOSPHATASE 146 u/l (38-126); ANION GAP 16 (6-22 (CALC)); BUN 24 mg/dL (8-23); BUN/CREATININE RATIO 22 (12-20 (CALC)); CARBON DIOXIDE 25 mmol/l (22-30); CHLORIDE 101 mmol/l (95-108); CREATININE 1.1 mg/dL (0.7-1.3); GFR > 60 ML/MIN (>=60 (CALC)); GFR FOR AFR.AMER. > 60 ML/MIN (>=60 (CALC)); POTASSIUM 4.3 mmol/l (3.5-5.1); SGOT/AST 22 u/l (19-48); SODIUM 138 mmol/l (137-146); TOTAL PROTEIN 7.2 g/dL (6.3-8.2)
[2020-06-26 23:02] LABS: BILIRUBIN, TOTAL 0.7 mg/dL (0.0-1.4)
[2020-06-26 23:06] LABS: INTERNATIONAL NORMALIZED RATIO 1.2 RATIO (0.7-1.3); PROTHROMBIN TIME 12.1 SECONDS (9.0-12.5)
[2020-06-26 23:15] LABS: D-DIMER 1.26 mg/L (0.19-0.60)
--- NOTE | 2020-06-27 00:38 | NUR ---
PT RETURNED FROM RADIOLOGY IN STABLE CONDITION. PLACED ON MONITOR. VERBALIZES NO NEEDS AT THIS TIME. CALL LIGHT WITHIN REACH.
[2020-06-27 00:51] LABS: URINE BILIRUBIN - DIPSTICK NEGATIVE (NEGATIVE); URINE BLOOD DIPSTICK SMALL (NEGATIVE); URINE COLOR YELLOW; URINE GLUCOSE - DIPSTICK 100 mg/dL (NEGATIVE); URINE KETONE NEGATIVE (NEGATIVE); URINE LEUK ESTERASE NEGATIVE (NEGATIVE); URINE NITRITE - DIPSTICK NEGATIVE (Negative); URINE PH 6.5 (4.5-8.0); URINE PROTEIN - DIPSTICK 100 mg/dL (NEG-TRACE); URINE SPECIFIC GRAVITY 1.025; URINE UROBILINOGEN - DIPSTICK 0.2 E.U./dL (0.2)
[2020-06-27 00:59] LABS: URINE SQUAMOUS EPITHELIAL CELL FEW EPI/hpf (0-FEW); URINE WBC 0-2 WBC/hpf (0-5)
--- NOTE | 2020-06-27 01:00 | NUR ---
PT RESTING ON STRETCHER IN NAD. RESP EVEN AND UNLABORED. SKIN WARM AND DRY. VERBALIZES NO NEEDS AT THIS TIME. CALL LIGHT PROVIDED. ASSOCIATE PROFESSOR OF SURGERY AND O2 IN PLACE.
[2020-06-27] MEDS ORDERED: MILK OF MAG30 ML/UDC PO (01:58)
[2020-06-27] MEDS ORDERED: PAIN RELIEF650 MG PO (01:59)
[2020-06-27] MEDS ORDERED: IMODIUM2 MG PO (02:00)
--- NOTE | 2020-06-27 02:00 | NUR ---
REPORT GIVEN TO [facility]
[2020-06-27] MEDS ORDERED: HALDOL5 M1 PO (02:09)
[2020-06-27] MEDS ORDERED: VITAMIN D31000 UNI1 PO (02:12)
--- NOTE | 2020-06-27 02:30 | NUR ---
Admission Note Report Given to: [facility] Transported by: X Wheelchair Stretcher Transported with: X Nurse Transporter X Patent IV X O2 Siphon Operator Location: ICU X MS2 PT TRANSPORTED TO DE VIA IN STBALE CONDITION.
[2020-06-27 02:36] VITALS: BP 150/65
--- NOTE | 2020-06-27 02:45 | NUR ---
PT ARRIVED TO MED SURG VIA WC ACCOMPANIED BY ED NURSE. PT IS BREATHING RAPIDLY UPON ARRIVING. DENIES FEELING SOB OR DISTRESSES, DENIES PAIN. PT STOOD TO USE URINAL AND THEN WAS ASSISTED POSITIONING IN THE BED. PT ORIENTED TO ROOM, CALL SYSTEM, LIGHTS, TV AND BED. PT VERBALIZES UNDERSTANDING. PT IS VERY SHAKY WITH HIS HANDS. V/S ASSESSED AT THIS TIME. CALL LIGHT AT SIDE.
--- NOTE | 2020-06-27 04:24 | NUR ---
PT IS SLEEPING SOUNDLY, NO S/O DISTRESS NOTED AT THIS TIME. AWOKE TO MY VOICE, BUT BREATHING IS NON-LABORED, RESP ARE REG.
--- NOTE | 2020-06-27 07:30 | NUR ---
RECIEVED REPORT FROM [facility]
[2020-06-27 08:23] VITALS: BP 150/81
--- NOTE | 2020-06-27 08:23 | NUR ---
PT RESTING IN SEMI FOLWERS POSITION. INTRODUCED SELF TO PT AND DISCUSSED HOUSEHOLD APPLIANCE REPAIRER. PT IS A/O X2. ASSESSMENT AND VITALS COMPLETED. TEMP 99.0,BP 150/81, HR 109, O2 94% ON 2L NC. RESPIRATIONS ARE SHALLOW, PT DENEIS OF SOB. HEART RHYTHM NORMAL. OWEL SOUNDS ARE ACTIVE IN ALL QUADRANTS, LAST REPORTED BM 06/25/20, PER PT. RADIAL AND PEDAL PULSES ARE STRONG. #20G IN LAC INFUSING WITH LR PER ORDER, SITE APPEARS HEALTHY AND PATENT. SKIN IS WARM AND INTACT. PT DENIES OF ANY PAINS OR DISCOMFORTS. ALL SAFETY PRECAUTIONS ARE IN PLACE WITH CALL LIGHT IN REACH AND BED ALARM ACTIVATED. WILL CONTINUE TO MONITOR.
--- NOTE | 2020-06-27 08:41 | NUR ---
MORNING MEDICATION ADMINISTERED, INCLUSING MOTRIN FOR FEVER. PT TOLERATED WELL.ALL SAFETY PRECAUTIONS ARE IN PLACE. WILL CONTINUE TO MONITOR
[2020-06-27 09:19] LABS: HEMATOCRIT 37.9 % (39.0-50.0); HEMOGLOBIN 12.2 g/dl (14.0-18.0); IMMATURE GRANULOCYTES 0.6 % (0.0-5.0); MEAN CELL VOLUME 95.9 fL CALC (80.0-100.0); MEAN CORPUSCULAR HGB 30.9 pG CALC (26.0-32.0); MEAN CORPUSCULAR HGB CONC 32.2 g/dL CAL (32.0-36.0); NEUT# 15.26 thou/uL (1.82-7.42); RED BLOOD COUNT 3.95 mill/uL (4.70-6.10); RED CELL DISTRI WIDTH 11.9 % (11.5-15.5)
[2020-06-27 09:29] LABS: ANION GAP 11 (6-22 (CALC)); BUN 16 mg/dL (8-23); BUN/CREATININE RATIO 19 (12-20 (CALC)); CARBON DIOXIDE 27 mmol/l (22-30); CHLORIDE 103 mmol/l (95-108); CREATININE 0.8 mg/dL (0.7-1.3); GFR > 60 ML/MIN (>=60 (CALC)); GFR FOR AFR.AMER. > 60 ML/MIN (>=60 (CALC)); MAGNESIUM 1.9 mg/dL (1.6-2.3); POTASSIUM 4.1 mmol/l (3.5-5.1); SODIUM 137 mmol/l (137-146)
--- NOTE | 2020-06-27 10:00 | NUR ---
WRITTER NOTFIED BY JOSE LUIS IN LAB 3.480. AMBERLY PADILLA NOTFIED.
--- NOTE | 2020-06-27 11:19 | NUR ---
SPOKE WITH MAICO LING FROM [facility] ABOUT PT ADMITTING STATUS.
--- NOTE | 2020-06-27 11:22 | NUR ---
Patient is screened for rehab intervention and no needs are identified at this time
--- NOTE | 2020-06-27 12:00 | NUR ---
PT SLEEPING IN SEMI FOWLERS POSITION. RESPIRATIONS ARE EVEN AND UNLABORED ON 2L NC. IVF INFUSING PER ORDER, SITE APPEARS HEALTHY AND PATENT. NO SIGN SOF ANY PAINS OR DISCOMFORTS. ALL SAFETY PRECAUTIONS ARE IN PLACE. WILL CONTINUE TO MONITOR.
--- NOTE | 2020-06-27 14:42 | NUR ---
PT RESTING IN SEMI FOWLERS POSITION. PT IS A/O X2. RESPIRATIONS ARE EVEN AND UNLABORED ON 2L NC. PT APPEARS VERY DIAPHORECTIC. ACCUCHECK RESULTING IN 91. BP 88/49, HR 83. PT DENEIS OF ANY PAINS OR COMPLAINTS. VALERIEANRP NOTIFED. ORDERED BOLUS. ALL SAFETY PRECAUTIONS ARE IN PLACE WITH CALL LIGHT IN REACH AND BED ALARM ACTIVATED. WILL CONTINUE TO MONITOR.
[2020-06-27 15:10] VITALS: BP 89/51
[2020-06-27 16:23] VITALS: BP 96/59
--- NOTE | 2020-06-27 16:25 | NUR ---
BP REASSESSED AFTER BOLUS RESULTING IN 96/59, HR 73, O2 100% ON 2L NC. RESPIRATIONS ARE EVEN AND UNLABORED. PT APPEARS VERY DROWSY. PT AWAKES TO SPEECH AND STATES " IM SO TIRED." IVF INFUSING PER ORDER, SITE REMAINS HEALTHY AND PATENT. NO SIGNS OF ANY PAINS OR DISCOMFORTS. ALL SAFETY PRECAUTIONS ARE IN PLACE WITH CALL LIGHT IN REACH. WILL CONTINUE TO MONITOR.
[2020-06-27 19:08] VITALS: BP 97/54
--- NOTE | 2020-06-27 19:19 | NUR ---
ATTEMPTED TO CALL NUMBER FOR [facility]. NO ANSWER. CALL TO PAWAN LEE. NO ANSWER. VOICE MAIL LEFT
--- NOTE | 2020-06-28 00:17 | NUR ---
PATIENT RESTING IN BED-APPEARS SLEEPING WITH EYES CLOSED. O2 VIA NASAL CANNULA IN PLACE. IVF PATENT AD INFSUING VIA LAC SITE AT 100CC/HR. SITE REMAINS HEALTHY. ROCEPHIN INFUSING ORDERED. VOIDING QS YELLOW URINE IN URINAL. CALL LIGHT IN REACH. WILL CONT TO MONITOR.
[2020-06-28 04:05] VITALS: BP 120/73
[2020-06-28 07:48] VITALS: BP 129/75
--- NOTE | 2020-06-28 07:48 | NUR ---
PT RESTING IN SEMI FOWLERS POSITION. PT IS A/O X1. ASSESSMENT AND VITALS COMPLETED. BP 129/75, HR 103, O2 96% ON 2L NC. RESPIRATIONS ARE EVEN AND UNLABORED ON ROOM AIR. HEART RHYTHM IS NORMAL. BOWEL SOUNDS ARE ACTIVE. RADIAL AND PEDAL PULSES ARE STRONG. SKIN IS WARM AND INTACT. PT EDUCATED ON SCHEDULED THORENCENTESIS. PT AGREED. PT DENIES OF ANY PAINS OR DISCOMFORTS. ALL SAFETY PRECAUTIONS ARE IN PLACE WITH CALL LIGHT IN REACH AND BED ALARM ACTIVATED. WILL CONTINUE TO MONITOR.
--- NOTE | 2020-06-28 09:12 | NUR ---
MORNING MEDS ADMINISTERED WITH NO DIFFICULTY. REASESSMENT OF TEMP REUSLTING IN 98.9. RESPIRATIONS ARE EVEN AND UNLABORED ON 2L NC. ALL SAFETY PRECAUTIONS ARE IN PLACE WITH CALL LIGHT IN REACH. WILL CONTINUE TO MONITOR
[2020-06-28 09:25] LABS: HEMATOCRIT 38.6 % (39.0-50.0); HEMOGLOBIN 12.2 g/dl (14.0-18.0); IMMATURE GRANULOCYTES 0.5 % (0.0-5.0); MEAN CELL VOLUME 97.7 fL CALC (80.0-100.0); MEAN CORPUSCULAR HGB 30.9 pG CALC (26.0-32.0); MEAN CORPUSCULAR HGB CONC 31.6 g/dL CAL (32.0-36.0); NEUT# 11.97 thou/uL (1.82-7.42); RED BLOOD COUNT 3.95 mill/uL (4.70-6.10); RED CELL DISTRI WIDTH 11.9 % (11.5-15.5)
--- NOTE | 2020-06-28 10:05 | NUR ---
UNABLE TO REACH RODERICK FOR THORENTESIS. MNR CONTACTED. GENERAL MERCHANDISE SALESPERSON NOTIFIED THAT FACILITY WILL ATTEMPT TO GET [facility]MIN[facility]. WILL BE EXPECTING CALL BACK
--- NOTE | 2020-06-28 10:40 | NUR ---
VERBAL CONSENT OBTAINED FROM DARRYL FROM [facility]. DARREN VENTURA.
--- NOTE | 2020-06-28 10:42 | NUR ---
DR WIGGINS AT BEDSIDE
--- NOTE | 2020-06-28 11:10 | NUR ---
PT TRANSFERED TO RADIOLOGY
--- NOTE | 2020-06-28 12:15 | NUR ---
PT ARRIVED BACK TO [facility] ROOM 270 VIA WHEELCHAIR IN STABLE CONDITION. REPSIRATIONS ARE SHALLOW. PT DENEIS OF ANY PAINS OR DISCOMFORTS. IVF RECONNECTED. DRESSING APPLIED TO LEFT BACK CDI. ALL SAFETY PRECAUTIONS ARE IN PLACE WITH CALL LIGHT IN REACH AND BED ALARM ACTIVATED. WILL CONTINUE TO MONITOR.
--- NOTE | 2020-06-28 12:33 | NUR ---
NEW #20G IN LFA STARTED, SITE APPEARS HEALTHY AND PATENT. #20G IN RAC REMOVED WITH CATATHER INTACT. WILL CONTINUE TO MONITOR
[2020-06-28 13:03] LABS: ANION GAP 11 (6-22 (CALC)); BUN 13 mg/dL (8-23); BUN/CREATININE RATIO 17 (12-20 (CALC)); CARBON DIOXIDE 30 mmol/l (22-30); CHLORIDE 100 mmol/l (95-108); CREATININE 0.8 mg/dL (0.7-1.3); GFR > 60 ML/MIN (>=60 (CALC)); GFR FOR AFR.AMER. > 60 ML/MIN (>=60 (CALC)); POTASSIUM 4.3 mmol/l (3.5-5.1); SODIUM 136 mmol/l (137-146)
--- NOTE | 2020-06-28 14:18 | NUR ---
PT RESPIRATIONS REMAINS SHALLOW. O2 SAT 93% ON 2L NC. PADILLA,ANRP NOTFIED
[2020-06-28 15:50] VITALS: BP 110/69
--- NOTE | 2020-06-28 16:29 | NUR ---
PT SLEEPING IN SEMI FOWLERS POSITION. RESPIRATIONS ARE EVEN AND UNLABORED ON 2L NC. IVF INFUSING PER ORDER, SITE REMAINS HEALTHY AND PATENT. NO SIGNS OF ANY PAINS OR DISCOMFORTS. ALL SAEFTY PRECAUTIONS ARE IN PLACE WITH CALL LIGHT IN REACH AND BED ALARM ACTIVATED. WILL CONTINUE TO MONITOR
[2020-06-28 19:00] VITALS: BP 112/71
--- NOTE | 2020-06-28 20:16 | NUR ---
PATIENT RESTING IN BED AT THIS TIME WITH O2 VIA NASAL CANNULA IN PLACE. PATIENT SPEAKS WHEN SPOKEN TO-ANSWERS APPROPRIATELY. PATIENT DOES STATE THAT HIS BREATHING HAS IMPROVED SINCE HAVING THE THORACENTESIS EARLIER TODAY. PATIENT WITH IVF LR PATENT AND INFUSING VIA RIGHT FOREARM SITE AT KVO RATE. SITE IS HEALTHY AT THIS TIME. MEDICATED WITH HS MEDS. OFFERED JUICE AND/OR SNACK BUT PATIENT DECLINED. BED ALARM IN PLACE FOR PATIENT SAFETY. SAFETY PRECAUTIONS REINFORCED. CALL LIGHT IN REACH. WILL CONT TO MONITOR.
--- NOTE | 2020-06-28 23:01 | NUR ---
PATIENT RESTING IN BED AT THIS TIME-AWAKE WITH NO COMPLAINTS. AZITHROMYCIN HUNG ODERED AND INFUSING VIA RIGHT FOREARM SITE. SITE REMAINS HEALTHY, SAFETY PRECAUTIONS REINFORCED. BED ALARM IN PLACE FOR PATIENT SAFETY. CALL LIGHT IN REACH. WILL CONT TO MONITOR.
[2020-06-29 04:00] VITALS: BP 103/66
--- NOTE | 2020-06-29 04:09 | NUR ---
PATIENT RESTING IN BED WITH HOB ELEVATED AND O2 VIA NASAL CANNULA IN PLACE. EYES ARE CLOSED AT THIS TIME. RESPS ARE EVEN AND UNLABORED. PATIENT IS VOIDING RAYMON URINE IN URINE. PO INTAKE REMAINS LIMITED. TAKING VERY LITTLE PO FLUIDS THROUGH TONIGHT. ALSO DID NOT EAT MUCH LAST NIGHT AT DINNER. IVF PATENT AND INFUSING VIA RIGHT FOREARM SITE. CALL LIGHT IN REACH. WILL CONT TO MONITOR.
[2020-06-29 05:40] LABS: HEMATOCRIT 40.4 % (39.0-50.0); HEMOGLOBIN 12.9 g/dl (14.0-18.0); MEAN CELL VOLUME 95.5 fL CALC (80.0-100.0); MEAN CORPUSCULAR HGB 30.5 pG CALC (26.0-32.0); MEAN CORPUSCULAR HGB CONC 31.9 g/dL CAL (32.0-36.0); RED BLOOD COUNT 4.23 mill/uL (4.70-6.10); RED CELL DISTRI WIDTH 11.8 % (11.5-15.5)
[2020-06-29 06:12] LABS: ANION GAP 11 (6-22 (CALC)); BUN 17 mg/dL (8-23); BUN/CREATININE RATIO 20 (12-20 (CALC)); CARBON DIOXIDE 31 mmol/l (22-30); CHLORIDE 97 mmol/l (95-108); CREATININE 0.8 mg/dL (0.7-1.3); GFR > 60 ML/MIN (>=60 (CALC)); GFR FOR AFR.AMER. > 60 ML/MIN (>=60 (CALC)); POTASSIUM 3.7 mmol/l (3.5-5.1); SODIUM 134 mmol/l (137-146)
[2020-06-29 07:29] VITALS: BP 106/69
--- NOTE | 2020-06-29 07:29 | NUR ---
PATIENT LAYING IN BED AT THIS TIME ALERT AND ORIENTED. PATIENT DENIES ANY PAIN AT THIS TIME. PATIENT STATES "I DON'T WANT TO EAT I HAVE NO APPETITE" EDUCATED PATIENT ON MAINTAINING INTAKE MUCH POSSIBLE OFFERED AND GAVE SOME JUICE AT THIS TIME. CALL LIGHT WITHIN REACH SIDERAILS UP X2. THERMAL SURFACING MACHINE OPERATOR DONE.
--- NOTE | 2020-06-29 11:27 | NUR ---
PATIENT LAYING IN BED AT THIS TIME. DENIES ANY PAIN SIDERAILS ARE UP CALL LIGHT IS WITHIN REACH.
--- NOTE | 2020-06-29 15:49 | NUR ---
GAVE 650MG OF TYLENOL AT THIS TIME FOR A TEMP OF 99.9 WILL CONTINUE TO MONITOR. SIDERAILS ARE UP CALL LIGHT IS WITHIN REACH. ADVISED PATIENT TO DRINK WATER AND TO EAT DINNER. PATIENT STATED HE HAS NOT HAD AND APPETTI BUT WILL TRY TO EAT SOMETHING TONIGHT FOR DINNER. 02 REMAINS ON AT 2 L.
[2020-06-29 16:05] VITALS: BP 120/82
--- NOTE | 2020-06-29 16:26 | NUR ---
TEMP TAKEN AT THIS TIME AND TEMP WAS 98.6 WILL CONTINUE TO MONITOR.
[2020-06-29 19:00] VITALS: BP 99/63
--- NOTE | 2020-06-29 20:04 | NUR ---
PT IN BED RESTING QUIETLY AT THIS TIME. PT DENIES ANY SOB OR CHEST PAIN. BREATHING IS CHAMP AND UNLABORED. UPPER LOBES AND RIGHT MIDDLE LOBE ARE CTA. LUNG BASES ARE DIMINISHED. NO COMPLAINTS VOICED. NO CONCERNS AT THIS TIME.
--- NOTE | 2020-06-30 00:41 | NUR ---
THIS NURSE WENT TO STOP COMPLETED ABT THAT WAS BEEPING AND NOTED THAT PT FELT VERY WARM. CHECKED TEMP AND NOTED A FEVER OF 103.7. PHYSICIAN NOTIFIED. NEW ORDERS FOLLOWS: ADMINISTER TYLENOL 650MG PO. RECHECK TEMP AGAIN IN 30 MINS TO 1 HOUR AND IF FEVER HAS NOT COME DOWN TO ADMINSTER IBUPROFEN 600MG PO. OBTAIN BLOOD CULTURES. WILL MONITOR.
--- NOTE | 2020-06-30 01:14 | NUR ---
TEMPERATURE RECHECKED 30 MINS AFTER TYLENOL ADMINISTRATION, NOTED THAT TEMP HAD DECREASED TO 100.3. PT INIDCATED HE FEELS A LITTLE BETTER NOW. WILL RECHECK TEMP AGAIN IN 30 MIN TO ASSESS FOR IBUPROFEN NEED. WILL MONITOR.
--- NOTE | 2020-06-30 02:04 | NUR ---
TEMPERATURE RECHECKED, AT THIS TIME PT IS AT 98.7, MOTRIN IS NOT INDICATED. TYLENOL WAS EFFECTIIVE IN DECREASING FEVER. WILL CONTINUE TO MONITOR.
[2020-06-30 04:00] VITALS: BP 93/60
[2020-06-30 05:12] LABS: HEMATOCRIT 41.7 % (39.0-50.0); HEMOGLOBIN 13.3 g/dl (14.0-18.0); IMMATURE GRANULOCYTES 0.5 % (0.0-5.0); MEAN CELL VOLUME 95.9 fL CALC (80.0-100.0); MEAN CORPUSCULAR HGB 30.6 pG CALC (26.0-32.0); MEAN CORPUSCULAR HGB CONC 31.9 g/dL CAL (32.0-36.0); NEUT# 13.5 thou/uL (1.82-7.42); RED BLOOD COUNT 4.35 mill/uL (4.70-6.10); RED CELL DISTRI WIDTH 11.7 % (11.5-15.5)
[2020-06-30 05:46] LABS: ALKALINE PHOSPHATASE 127 u/l (38-126); ANION GAP 11 (6-22 (CALC)); BILIRUBIN, TOTAL 0.6 mg/dL (0.0-1.4); BUN 19 mg/dL (8-23); BUN/CREATININE RATIO 22 (12-20 (CALC)); CARBON DIOXIDE 28 mmol/l (22-30); CHLORIDE 100 mmol/l (95-108); CREATININE 0.9 mg/dL (0.7-1.3); GFR > 60 ML/MIN (>=60 (CALC)); GFR FOR AFR.AMER. > 60 ML/MIN (>=60 (CALC)); POTASSIUM 3.8 mmol/l (3.5-5.1); SODIUM 135 mmol/l (137-146)
[2020-06-30 05:51] LABS: ALBUMIN 2.7 g/dL (3.2-5.0); SGOT/AST 85 u/l (19-48); TOTAL PROTEIN 5.4 g/dL (6.3-8.2)
[2020-06-30 07:27] VITALS: BP 102/63
--- NOTE | 2020-06-30 07:27 | NUR ---
PATIENT LAYING IN BED AT THIS TIME. VAC PRESS OPERATOR DONE SEE INTERVENTIONS. CALL LIGHT WITHIN REACH SIDERAILS UP X2. PATIENT DENIES ANY PAIN. LUNG SOUNDS REMAIN DIMINISHED IN LOWER LUNG COMBS. TEMP AT THIS TIME IS 99.5 PATIENT DENIES ALL OTHER NEEDS. PATIENTS SPO2 IS 92% ON ROOM AIR. PATIENT EDUCATED ON WEARING O2 IF HE BECOMES SHORT OF BREATH. PATIENT WILL CONTINUE TO BE MONITORED.
--- NOTE | 2020-06-30 07:37 | NUR ---
PATIENT MEDICATED WITH 650MG OF TYLENOL FOR A TEMP OF 99.5 AT THIS TIME. WILL CONTINUE TO MONITOR.
--- NOTE | 2020-06-30 08:37 | NUR ---
PATIENT TEMP AT THIS TIME IS 99.3 WILL CONTINUE TO MONITOR.
--- NOTE | 2020-06-30 12:06 | NUR ---
S: LUIS FELIPE PUENTES is a 64 M who presents with sepsis due to pneumonia. He has a history of seizures, mental delay, and melanoma. All medications in patient's chart were reviewed. O: VS: BP 102/63 mmHg, P 103 bpm, RR 18 breaths per min,T 99.3 F W 65.005 kg, HT 72 in, Scr=0.9 mg/dl,CrCl= 76.2 ml/min A: Blood culture is pending. Pleural fluid culture shows no growth. P: Patient is on Zosyn 4.5 g IV Q6H. Vancomycin ordered for pharmacy to dose. Start Vancomycin 1 g IV Q12H. Vancomycin trough is drawn before the 4th dose on 07/01/20 at 21:30. Vancomycin goal trough is between 15-20 mcg/ml. Pharmacy will follow and or advise on antibiotics use as needed.
--- NOTE | 2020-06-30 12:10 | NUR ---
PATIENT SITTING IN BED AT THIS TIME EATING LUNCH DENIES ANY PAIN SIDERAILS ARE UP CALL LIGHT WITHIN REACH.
--- NOTE | 2020-06-30 13:50 | NUR ---
CALLED OR SPOKE TO COLLEEN FOR DR. BAH CONSULT FOR THIS PT. STATED SHE WILL LET HIM KNOW.
[2020-06-30 14:50] VITALS: BP 112/65
--- NOTE | 2020-06-30 15:14 | NUR ---
PATIENT TEMP AT THIS TIME IS 100.0 650MG OF TYLENOL GIVEN AT THIS TIME. WILL CONTINUE TO MONITOR.
--- NOTE | 2020-06-30 16:04 | NUR ---
PATIENT RESTING IN BED AT THIS TIME DENIES ANY NEEDS AT THIS TIME CALL LIGHT IS WITHIN REACH SIDERAILS UP X 2. PATIENT AWAITING TRANSFER AT TO [facility]. WILL CONTINUE TO MONITOR.
--- NOTE | 2020-06-30 16:28 | NUR ---
PATIENT TEMP REASSESSED AT THIS TIME TEMP IS 101.9 PROVIDER CORNELIA JIMENEZ APRN MADE AWARE AND ORDERS GIVEN FOR MOTRIN 600MG PO. PATIENT DOES HAVE AN ALLERGY TO ASA BUT STATES HE HAS TAKE MOTRIN WITHOUT ISSUES. [facility] NOTIFIED AT THIS TIME.
--- NOTE | 2020-06-30 16:38 | NUR ---
600MG OF MOTRIN GIVEN AT THIS TIME FOR TEMP OF 101.2 WILL CONTINUE TO MONITOR
[2020-06-30 19:00] VITALS: BP 102/72
--- NOTE | 2020-06-30 23:26 | NUR ---
PT RESTING COMFORTABLY IN BED, NO COMPLAINTS VOICED. ABT CONTINUES FOR INFECTION. NO CONCERNS AT THIS TIME. NO S/S OF DISTRESS NOTED
--- NOTE | 2020-07-01 01:16 | NUR ---
PT RESTING QUIETLY IN BED. ABT ADMINISTERED PER ORDER. NO S/E RELATED TO ABT NOTED. NO S/S OF DISTRESS AT THIS TIME. NO COMPLAINTS VOICED. DENIES PAIN. WILL MONITOR
--- NOTE | 2020-07-01 04:27 | NUR ---
PT RESTING QUIETLY IN BED WITH HIS EYES CLOSED. NO CONCERNS VOICED. DENIES PAIN. NEW BAG OF LACTATED RINGERS WAS HUNG AND IS RUNNING AT 100ML/HR. WILL CONTINUE TO MONITOR.
[2020-07-01 04:30] VITALS: BP 117/84
[2020-07-01 06:02] LABS: ANION GAP 9 (6-22 (CALC)); BUN 20 mg/dL (8-23); BUN/CREATININE RATIO 26 (12-20 (CALC)); CARBON DIOXIDE 29 mmol/l (22-30); CHLORIDE 103 mmol/l (95-108); CREATININE 0.8 mg/dL (0.7-1.3); GFR > 60 ML/MIN (>=60 (CALC)); GFR FOR AFR.AMER. > 60 ML/MIN (>=60 (CALC)); MAGNESIUM 2.3 mg/dL (1.6-2.3); POTASSIUM 3.4 mmol/l (3.5-5.1); SODIUM 138 mmol/l (137-146)
[2020-07-01 06:04] LABS: MEAN CELL VOLUME 96.2 fL CALC (80.0-100.0); MEAN CORPUSCULAR HGB 30.4 pG CALC (26.0-32.0); MEAN CORPUSCULAR HGB CONC 31.6 g/dL CAL (32.0-36.0); RED BLOOD COUNT 3.95 mill/uL (4.70-6.10); RED CELL DISTRI WIDTH 11.7 % (11.5-15.5)
[2020-07-01 07:05] VITALS: BP 111/71
--- NOTE | 2020-07-01 07:05 | NUR ---
PATIENT RESTING IN BED AT THIS TIME. PATIENT DENIES ANY NEEDS OR PAIN. CARPENTER ASSISTANT INSTALLER DONE SEE INTERVENTIONS. LUNGS SOUNDS REMAIN DIMINISHED IN BILATERAL LOWER LUNGS COMBS, RESPIRATIONS ARE EASY AND UNLABORED AND SPO2 IS 94% ON ROOM AIR AT THIS TIME. TRANSFER CENTER CALLED WITH BED ASSIGNMENT FOR [facility]. PATIENT WILL BE TRANSFERED VIA TRANSPORT TO # [id number] IN TOWER #10 CASE MANAGEMENT NOTIFIED OF TRANSFER INFORMATION. SIDERAILS ARE UP CALL LIGHT IS WITHIN REACH.
--- NOTE | 2020-07-01 08:35 | NUR ---
TRANSPORT HERE TO TRANSFER PATIENT TO [facility] AT THIS TIME. PATIENT LEFT IN GOOD CONDITION.
--- NOTE | 2020-07-01 08:35 | NUR ---
TRANSPORT HERE TO TAKE PATIENT TO [facility] AT THIS TIME.
--- NOTE | 2020-07-01 09:23 | NUR ---
REPORT CALLED TO DANNY AT [facility] AT THIS TIME.
== END 2020-07-01 08:32 | disposition short-term general hospital (02) | DRG 871 ==
LOC: ED 22:00 → ED-I 06-27 01:00 → ED 06-27 01:15 → MS2 06-27 01:16
PROVIDERS: Family Medicine; Nurse Practitioner; ADMIT Internal Medicine; ATTEND Internal Medicine
PROC: 0W9B3ZZ Drainage of Left Pleural Cavity, Percutaneous Approach (ICD-10-PCS; principal; 2020-06-27)
DX: A41.9 Sepsis, unspecified organism (principal); J18.9 Pneumonia, unspecified organism; J91.8 Pleural effusion in other conditions classified elsewhere; F79 Unspecified intellectual disabilities; G40.909 Epilepsy, unspecified, not intractable, without status epilepticus; F91.9 Conduct disorder, unspecified; F17.200 Nicotine dependence, unspecified, uncomplicated; Z85.820 Personal history of malignant melanoma of skin; Z86.16 Personal history of COVID-19; Z20.822 Contact with and (suspected) exposure to COVID-19
CPT/HCPCS: J1650; Q9967